=== PATIENT | female | born 1950 | race Caucasian/White ===

== ENCOUNTER 2022-07-29 19:50 | Inpatient (IN) | payer MEDICARE, BC, OTHER, SELFPAY ==
--- NOTE | ~2022-07-29 | XR_ITS ---
EXAMINATION: XR stent/kub surgery DATE: 07/30/2022 07:15 INDICATION: Left internal ureteral stent placement TECHNIQUE: 4 fluoroscopic images of the abdomen and pelvis were obtained during procedure performed joaquin Orozco. Radiologist was not present for the imaging or procedure. The amount of fluoroscopy ti me used during this procedure was 0.2 minutes. 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 There is mild left hydroureteronephrosis. Which extends to the pelvis or a stone is seen in the distalmost lef t ureter on the prior CT likely obscured by the contrast in the current study. Additional excreted co ntrast in the bladder. Subsequent images demonstrate placement of a left internal ureteral stent in e xpected position with loops formed in the bladder and multiple calyx of the left kidney. The left ure teral stone is not identified on the final image and may have been extracted. Correlate with procedur e note. IMPRESSION: 1. Mild left hydroureteronephrosis with placement of a left internal ureteral stent in expected posit ion. Correlate with procedure note as to whether the obstructing distal left ureteral stone seen on p rior CT has been extracted. Reviewed, dictated and finalized at location A. IMPRESSION: 1. Mild left hydroureteronephrosis with placement of a left internal ureteral s tent in expected position. Correlate with procedure note as to whether the obst ructing distal left ureteral stone seen on prior CT has been extracted.
--- NOTE | ~2022-07-29 | CT_ITS ---
EXAMINATION: CT abdomen pelvis w con DATE: 07/30/2022 01:05 INDICATION: Left flank pain, fever and dysuria. Nausea and vomiting. TECHNIQUE: Computed tomography (CT) of the abdomen and pelvis was performed with 100 mL Omnipaque-350 intravenous contrast. Automated exposure control and iterative reconstruction technique were employe d. The dose-length product was 462.07 mGy-cm. COMPARISON: None FINDINGS: Scattered mild discoid atelectasis in the bilateral lower lungs. Heart size is normal. No pericardial or pleural effusion. Moderate-sized sliding-type hiatal hernia. Liver, gallbladder, spleen, pancreas , bilateral adrenal glands and right kidney are normal. 5 mm obstructing stone at the distal left ure ter with mild to moderate left hydroureteronephrosis and mildly delayed left nephrogram. Additional 4 mm stone in a middle calyx of the left kidney. Mildly thickened and enhancing urothelium at the left ureter and collecting system which could be seen with associated ascending urinary tract infection. Mild wall thickening of the bladder. Anteverted uterus and bilateral adnexa are unremarkable. Bowels including the appendix are normal. No free intraperitoneal gas or fluid. No pathologically enlarged o r pelvic lymphadenopathy. Tiny fat-containing umbilical hernia. Moderate spondylosis of the lower tho racic and lower lumbar spine. IMPRESSION: 1. Left nephrolithiasis including an obstructing 5 mm distal left ureteral stone with mild to moderat e left hydronephrosis. Correlate with urinalysis to exclude associated urinary tract infection. 2. Moderate-sized sliding-type hiatal hernia. Reviewed, dictated and finalized at location A. IMPRESSION: 1. Left nephrolithiasis including an obstructing 5 mm distal left ureteral ston e with mild to moderate left hydronephrosis. Correlate with urinalysis to exclu de associated urinary tract infection. 2. Moderate-sized sliding-type hiatal hernia.
--- NOTE | ~2022-07-29 | XR_ITS ---
EXAMINATION: XR abdomen/kub 1V INDICATION: Ureteral stone TECHNIQUE: Supine view of the abdomen is obtained. COMPARISON: 07/30/2022 FINDINGS: A left internal ureteral stent is in expected position. A subtle density of the left pelvis adjacent to the distal aspect of the internal ureteral stent may reflect the stone identified on the comparison examination. There are phleboliths of the pelvis. The bowel gas pattern is normal. Mild o steitis pubis is noted. IMPRESSION: 1. Left internal ureteral stent in expected position with possible stone adjacent to the distal stent . Reviewed, dictated and finalized at location B. IMPRESSION: 1. Left internal ureteral stent in expected position with possible stone adjace nt to the distal stent.
[2022-07-29 20:54] VITALS: BP 113/74; PULSE 104; RESP 14; TEMP 37.3; O2SAT 96
[2022-07-29 23:05] VITALS: BP 108/74; PULSE 88; RESP 22; O2SAT 95
--- NOTE | 2022-07-29 23:10 | PC.NURSE ---
Pt reports left flank pain that started on Saturday and got worse this afternoon. +Nausea, vomiting, and dry heaves. States she was able to sip on white soda over the weekend but couldn't keep it down. She also tried pepto bismol but threw it up as well. 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
[2022-07-29 23:11] LABS: Basophils Absolute Auto 0.1 K/mm3 (0.0-0.1); Basophils Percent Auto 0.4 % (0.2-1.2); Hematocrit 40.3 % (37.0-47.0); Hemoglobin 13.4 g/dL (12.0-15.0); Immature Granulocyte Absolute 0.11 K/mm3 (0.00-0.031); Immature Granulocyte Percent A 0.5 % (0-0.5); Lymphocytes Absolute Auto 0.81 K/mm3 (0.9-3.2); Lymphocytes Percent Auto 3.8 % (18.3-44.2); Mean Corpuscular HGB Conc 33.3 g/dl (32-36); Mean Corpuscular Hemoglobin 30.2 pg (26-34); Mean Corpuscular Volume 90.8 fl (80-100); Mean Platelet Volume 10.3 fl (7.4-10.4); Monocytes Absolute Auto 1.4 K/mm3 (0.1-0.6); Monocytes Percent Auto 6.6 % (2.6-8.5); Neutrophils Absolute Auto 19.2 K/mm3 (1.3-6.7); Neutrophils Percent Auto 88.7 % (45.5-73.1); Platelet Count Result 306 k/mm3 (150-375); Red Blood Count 4.44 M/mm3 (4.2-5.4); Red Cell Distribution Width 13.2 % (11.5-14.5); White Blood Count 21.6 K/mm3 (4.5-10.0)
[2022-07-29 23:22] LABS: Alanine Aminotransferase 17 U/L (6-35); Albumin Level 4.7 g/dL (3.5-5.1); Alkaline Phosphatase 84 U/L (38-126); Anion Gap 9 mmol/L (8-16); Aspartate Amino Transferase 25 U/L (14-36); Bilirubin,Total 0.9 mg/dL (0.2-1.3); Blood Urea Nitrogen 16 mg/dL (7-17); Calcium 9.6 mg/dL (8.4-10.2); Carbon Dioxide 24 mmol/L (22-30); Chloride 103 mmol/L (98-107); Estimated CRCL calculation 43 ml/min; Estimated Glomerular Filt Rate 55; Glucose 150 mg/dL (65-110); Lactic Acid Reflex 1.1 mmol/L (0.7-2.0); Potassium 3.6 mmol/L (3.4-5.0); Sodium 136 mmol/L (137-145)
--- NOTE | 2022-07-29 23:25 | ED.FEMALEGU ---
HPI - Female Genitourinary General Chief complaint: Urogenital-Female Stated complaint: Left flank pain, n/v Time Seen by Provider: 07/29/22 22:39 History of Present Illness HPI Narrative: 72-year-old female here for evaluation of left flank pain over the past 2 days. Patient states the pain is severe in nature, coming in waves. She has never had pain like this in the past. She states that she took her temperature at home and noticed it was 102.3. She took an aspirin which did bring down her fever and improve her flank pain. She has been experiencing dysuria urgency and frequency over the past week to 2 weeks which reportedly cleared up on her own. reports nausea but no vomiting. No diarrhea, constipation. Related Data Allergies Allergy/AdvReac Type Severity Reaction Status Date / Time amoxicillin Allergy Unknown Verified 09/07/10 15:53 Penicillins Allergy Unknown Verified 02/10/18 15:05 Sulfa (Sulfonamide Allergy Unknown Verified 02/10/18 15:05 Antibiotics) sulfur dioxide Allergy Unknown Verified 08/08/10 10:18 Review of Systems Review of Systems: Gen.: Reports fevers Eyes: Denies eye pain or visual change ENT: Denies congestion Respiratory: Denies shortness of breath or cough CV: Denies chest pain or palpitations GI: Reports nausea. Denies abdominal painemesis or diarrhea denies burning, urgency, frequency or hematuria Musculoskeletal: Reports flank pain Neuro: Denies numbness, tingling, weakness or focal weakness Skin: Denies rash Except as documented, all other systems reviewed and negative PMFSH Family History Family History (Updated 08/03/16 @ 23:56 by DOCTOR UNKNOWN) Sibling Patient's sister is in good health Patient's brother is in good health Father Acute myocardial infarction, Onset Age: 69 Patient's father is Mother Patient's mother is Family history of throat cancer Social History Social History Smoking status: Current every day smoker Alcohol intake: never Exam Narrative: APPEARANCE: Well appearing, no pain in distress, well-nourished. Head: Normocephalic and atraumatic. EYES: PERRLA/EOMI, conjunctivae clear NOSE: No nasal drainage EARS: External ear normal in appearance THROAT: Oropharynx is clear. Mucous membranes are moist. NECK: Supple. No adenopathy, no masses. RESPIRATORY: Airway patent, respirations nonlabored. Clear to auscultation bilaterally, no rales, rhonchi, wheezing. CARDIOVASCULAR: Regular rate and rhythm without murmurs, rubs, or gallops. ABDOMINAL: Normoactive bowel sounds. Soft, nontender, nondistended. No rebound tenderness or guarding. MUSCULOSKELETAL: Left CVA tenderness. Extremities are warm and well-perfused. Moves all extremities well. No edema. NEURO: Normal speech. No focal neurologic deficits. SKIN: Skin is warm and dry. No rashes. PSYCHIATRIC: Normal affect/mood. Course Vital Signs Vital signs: Vital Signs Temperature 99.1 F 07/29/22 20:54 Pulse Rate 104 H 07/29/22 20:54 Respiratory Rate 14 07/29/22 20:54 Blood Pressure 113/74 07/29/22 20:54 Pulse Oximetry 96 07/29/22 20:54 Oxygen Delivery Room Air 07/29/22 20:54 Temperature 99.1 F 07/29/22 20:54 Pulse Rate 70 07/30/22 01:31 Respiratory Rate 18 07/30/22 01:31 Blood Pressure 110/72 07/30/22 01:31 Pulse Oximetry 96 07/30/22 01:31 Oxygen Delivery Room Air 07/29/22 20:54 MDM - Female Genitourinary MDM Narrative Medical decision making narrative: 72-year-old female here for evaluation of left flank pain, dysuria and fevers at home for the past day. She is uncomfortable appearing but nontoxic in appearance. Initial pulse is 104, temperature is 99.1 in triage, patient took aspirin prior to arrival. She has a white count of 21.6. Her urine appears very infected; is nitrate positive, over 100 white blood cells, 3+ leuks and 4+ bacteria are seen. CT scan reveals evidence of a distal ureteral stone in the
[2022-07-29 23:30] VITALS: BP 106/81; PULSE 87; RESP 16; O2SAT 97
[2022-07-29] MEDS: SODIUM CHLORIDE 0.9% IV 1,000 ML 999 ML IV CONT (23:32)
[2022-07-29] MEDS: ONDANSETRON INJ 4 MG/2 ML VIAL IV PUSH (23:33)
[2022-07-29 23:42] LABS: Appearance Urine Turbid (Clear); Bacteria Urine 4+ /hpf; Bilirubin Urine Negative (Negative); Blood Urine 3+ (Negative); Color Urine Dark Yellow (Yellow); Glucose Urine UA Negative (Negative); Ketones Urine 2+ mg/dL (Negative); Leukocyte Esterase Ur 3+ LEU/UL (Negative); Need Manual Microscopic Reviewed; Nitrate Urine Positive (Negative); Protein Urine 2+ mg/dL (Negative); Specific Grav Ur 1.017 (1.001-1.035); Squamous Epithelial Cell Urine None seen /hpf (Few); Urobilinogen Urine 0.2 mg/dL (<2.0); WBC Urine >100 /hpf; pH Urine 5.5 (5.0-9.0)
[2022-07-29 23:45] LABS: Add Urine Microscopic? YES
[2022-07-30] VITALS (14 sets, daily range): BP systolic 98–120; BP diastolic 59–82; PULSE 55–87; RESP 14–20; TEMP 36.2–36.9; O2SAT 96–100; BMI 24.3
[2022-07-30] MEDS: SODIUM CHLORIDE 0.9% IV 1,000 ML 999 ML IV CONT (01:58)
[2022-07-30] MEDS: ONDANSETRON INJ 4 MG/2 ML VIAL IV PUSH (03:01)
--- NOTE | 2022-07-30 03:46 | ADMGEN ---
This patient, Ella Olea, was admitted to Medical Room 348-01. Patient/family oriented to hospital policies and general routines including ID bracelet, bed and alarms, visiting hours, pain management, procedures, bathroom and other care routines, personal items, smoking policy, room service/diet, and visiting hours. Information on how to activate the Rapid Response Team has been discussed. Patient/Family are encouraged to report perceived risks to care and to ask questions if they do not understand what they are told or what they should do.
[2022-07-30] MEDS: SODIUM CHLORIDE 0.9% IV 1,000 ML 150 ML IV CONT (04:18)
--- NOTE | 2022-07-30 06:08 | WPDANESEPPF ---
Anes - Initial Pre Proc Eval Procedure: Operation Date: 07/30/22 06:30 Proposed Procedures p Cysto, RPG, Stone Ext, Stent Placement(Left) - Rupesh Orozco MD Date/Time: 07/30/22 06:08 Surgeon: Heidy Palmer DO Pre Op Diagnosis: L ureteral stone Pre Op Diagnosis: urosepsis,kidney stone Patient Data Age: 72 Gender: F Height: 1.68 m Weight: 68.3 kg Last Vital Signs Temp 36.7 C 07/30/22 05:42 Pulse 70 07/30/22 05:42 Resp 16 07/30/22 05:42 BP 115/80 07/30/22 05:42 Pulse Ox 97 07/30/22 05:42 O2 Del Method Room Air 07/30/22 04:28 Allergies Allergy/AdvReac Type Severity Reaction Status Date / Time Penicillins Allergy Unknown Rash Verified 07/30/22 03:58 Sulfa (Sulfonamide Allergy Unknown Rash Verified 07/30/22 03:58 Antibiotics) sulfur dioxide Allergy Unknown Rash Verified 07/30/22 03:58 amoxicillin AdvReac Unknown Rash Verified 07/30/22 03:58 Home Medications Medication Instructions Recorded Confirmed Type aspirin 81 mg capsule 81 mg PO PRN PRN Fever Or Pain 07/30/22 07/30/22 History esomeprazole magnesium 20 mg 20 mg PO PRN PRN Acid Reflux 07/30/22 07/30/22 History capsule,delayed release (Nexium) Laboratory Tests 07/29/22 07/29/22 07/29/22 23:01 23:01 23:01 WBC 21.6 K/mm3 H K/mm3 (4.5-10.0) RBC 4.44 M/mm3 M/mm3 (4.2-5.4) Hgb 13.4 g/dL g/dL (12.0-15.0) Hct 40.3 % % (37.0-47.0) MCV 90.8 fl fl (80-100) MCH 30.2 pg pg (26-34) MCHC 33.3 g/dl g/dl (32-36) RDW 13.2 % % (11.5-14.5) Plt Count 306 k/mm3 k/mm3 (150-375) MPV 10.3 fl fl (7.4-10.4) Immature Gran % (Auto) 0.5 % % (0-0.5) Neut % (Auto) 88.7 % H % (45.5-73.1) Lymph % (Auto) 3.8 % L % (18.3-44.2) [place] % (Auto) 6.6 % % (2.6-8.5) Eos % (Auto) 0.0 % % (0-4.4) Baso % (Auto) 0.4 % % (0.2-1.2) Lymph # (Auto) 0.81 K/mm3 L K/mm3 (0.9-3.2) [place] # (Auto) 1.4 K/mm3 H K/mm3 (0.1-0.6) Eos # (Auto) 0.0 K/mm3 K/mm3 (0-0.3) Baso # (Auto) 0.1 K/mm3 K/mm3 (0.0-0.1) Abs Immat Gran (auto) 0.11 K/mm3 H K/mm3 (0.00-0.031) Absolute Neuts (auto) 19.2 K/mm3 H K/mm3 (1.3-6.7) Absolute Nucleated RBC 0.0 K/mm3 K/mm3 (0.0-0.012) Nucleated RBC % 0.0 % % (0.0-0.2) Sodium 136 mmol/L L mmol/L (137-145) Potassium 3.6 mmol/L mmol/L (3.4-5.0) Chloride 103 mmol/L mmol/L (98-107) Carbon Dioxide 24 mmol/L mmol/L (22-30) Anion Gap 9 mmol/L mmol/L (8-16) BUN 16 mg/dL mg/dL (7-17) Creatinine 1.00 mg/dL mg/dL (0.7-1.0) Estim Creat Clear Calc 43 ml/min ml/min Estimated GFR 55 L (59 - ) Glucose 150 mg/dL H mg/dL (65-110) Lactic Acid Calcium 9.6 mg/dL mg/dL (8.4-10.2) Total Bilirubin 0.9 mg/dL mg/dL (0.2-1.3) AST 25 U/L U/L (14-36) ALT 17 U/L U/L (6-35) Alkaline Phosphatase 84 U/L U/L (38-126) Total Protein 8.0 g/dL g/dL (6.3-8.2) Albumin 4.7 g/dL g/dL (3.5-5.1) Urine Color Dark yellow (Yellow) Urine Appearance Turbid H (Clear) Urine pH 5.5 (5.0-9.0) Ur Specific [place] 1.017 (1.001-1.035) Urine Protein 2+ mg/dL H mg/dL (Negative) Urine Glucose (UA) Negative mg/dL mg/dL (Negative) Urine Ketones 2+ mg/dL H mg/dL (Negative) Ur Blood (Man) 3+ H (Negative) Urine Nitrate Positive H (Negative) Urine Bilirubin Negative (Negative) Urine Urobilinogen 0.2 mg/dL mg/dL (<2.0) Add Ur Microanalysis Reviewed Leukocyte Esterase Rfl 3+ ERIN/UL H ERIN/UL (Negative) Urine RBC 3-5 /hpf H /hpf (0-2) Urine W
--- NOTE | 2022-07-30 06:33 | PC.NURSE ---
pt to OR via wheelchair. consent and chart with patient. all personal belongings left at bedside.
--- NOTE | 2022-07-30 06:37 | WPDURCON ---
Assessment and Plan Assessment and plan (1) Kidney stone on left side: Code(s): N20.0 - Calculus of kidney Status: Acute (2) Urinary tract infection in elderly patient: Code(s): N39.0 - Urinary tract infection, site not specified Status: Acute Plan Will proceed with cystoscopy and left ureteral stent placement. She understands risks of bleeding, infection, damage to the urinary tract, inability to place stent. She understands I will not be removing the stone at this time due to the high likelihood of upper tract infection. She will need to be in-house until a urine culture returns with sensitivities. She can then be discharged home on 10-14 days of oral antibiotics. We will arrange definitive stone management as an outpatient. Urology Consult Note HPI Date Seen: 07/30/22 Requesting Physician: Heidy Palmer DO Primary Care Provider: PHYSICIAN NOT ON STAFF Consult Narrative Narrative: Ella Olea is a 72 year old female With no prior history of nephrolithiasis. She has been having symptoms of urinary tract infection for the last week or 2. She has noted urgency and frequency as well as dysuria. On Saturday she began to have left-sided flank pain. This progressed to fevers on Saturday at a max of 102 at home. This prompted her visit the emergency room. CT scan was done which shows a stone in the mid to distal ureter. There was hydronephrosis proximal the stone with urothelial enhancement consistent with upper tract infection. She took aspirin and Tylenol before coming to the ER so her fever is down to 99. she continues to note dysuria and left flank pain. She has an elevated white count of 21. We will proceed with left stent placement on an emergent basis Review of Systems Review of Systems: All systems reviewed & are unremarkable except as noted in HPI and below [facility] Family History Family History Sibling Patient's sister is in good health Patient's brother is in good health Father Acute myocardial infarction, Onset Age: 69 Patient's father is Mother Patient's mother is Family history of throat cancer Social History Social History Smoking status: Former smoker Alcohol intake: former Substance use: never Lack of Transportation: No Lack of Food: Never True Current Housing: I Have Housing Concerned About Future Housing: No Difficulty Paying Gas/Electric Bills: No Difficulty Paying for Meds: No Currently Unemployed: No Education: Decline to Answer Difficulty w/ Childcare or Family Care: No Spiritual care concerns: No Meds Home Medications and Allergies Home Medications Medication Instructions Recorded Confirmed Type aspirin 81 mg capsule 81 mg PO PRN PRN Fever Or Pain 07/30/22 07/30/22 History esomeprazole magnesium 20 mg 20 mg PO PRN PRN Acid Reflux 07/30/22 07/30/22 History capsule,delayed release (Nexium) Allergies Allergy/AdvReac Type Severity Reaction Status Date / Time Penicillins Allergy Unknown Rash Verified 07/30/22 03:58 Sulfa (Sulfonamide Allergy Unknown Rash Verified 07/30/22 03:58 Antibiotics) sulfur dioxide Allergy Unknown Rash Verified 07/30/22 03:58 amoxicillin AdvReac Unknown Rash Verified 07/30/22 03:58 Vital Signs Vital Signs - 24 hr 07/29/22 20:54 07/29/22 23:05 07/29/22 23:30 Temperature 99.1 F Pulse Rate 104 H 88 87 Respiratory Rate 14 22 H 16 Blood Pressure 113/74 108/74 106/81 Pulse Oximetry 96 95 97 Oxygen Delivery Room Air 07/30/22 00:31 07/30/22 01:07 07/30/22 01:31 Temperature Pulse Rate 76 73 70 Respiratory Rate 18 18 18 Blood Pressure 120/73 117/82 110/72 Pulse Oximetry 100 96 96 Oxygen Delivery 07/30/22 02:01 07/30/22 03:01 07/30/22 03:55 Temperature 98.0 F Pulse Rate 66 61 69 Respiratory Rate 20 18 18 Blood
--- NOTE | 2022-07-30 06:48 | WPDHPUPDATE1 ---
History and Physical Update Update Date/Time: 07/30/22 06:48 History and Physical has been reviewed, including an updated exam of the patient. There are NO changes in the patient's condition. Risks, benefits, and alternatives have been discussed and questions answered. Patient agrees to proceed with procedure.
--- NOTE | 2022-07-30 06:48 | WPDANESEPPF ---
Anes - Initial Pre Proc Eval Procedure: Operation Date: 07/30/22 06:30 Proposed Procedures p Cysto, RPG, Stone Ext, Stent Placement(Left) - Rupesh Orozco MD Date/Time: 07/30/22 06:48 Surgeon: Heidy Palmer DO Pre Op Diagnosis: urosepsis,kidney stone Patient Data Age: 72 Gender: F Height: 1.68 m Weight: 68.3 kg Last Vital Signs Temp 36.7 C 07/30/22 05:42 Pulse 70 07/30/22 05:42 Resp 16 07/30/22 05:42 BP 115/80 07/30/22 05:42 Pulse Ox 97 07/30/22 05:42 O2 Del Method Room Air 07/30/22 04:28 Allergies Allergy/AdvReac Type Severity Reaction Status Date / Time Penicillins Allergy Unknown Rash Verified 07/30/22 03:58 Sulfa (Sulfonamide Allergy Unknown Rash Verified 07/30/22 03:58 Antibiotics) sulfur dioxide Allergy Unknown Rash Verified 07/30/22 03:58 amoxicillin AdvReac Unknown Rash Verified 07/30/22 03:58 Home Medications Medication Instructions Recorded Confirmed Type aspirin 81 mg capsule 81 mg PO PRN PRN Fever Or Pain 07/30/22 07/30/22 History esomeprazole magnesium 20 mg 20 mg PO PRN PRN Acid Reflux 07/30/22 07/30/22 History capsule,delayed release (Nexium) Laboratory Tests 07/29/22 07/29/22 07/29/22 23:01 23:01 23:01 WBC 21.6 K/mm3 H K/mm3 (4.5-10.0) RBC 4.44 M/mm3 M/mm3 (4.2-5.4) Hgb 13.4 g/dL g/dL (12.0-15.0) Hct 40.3 % % (37.0-47.0) MCV 90.8 fl fl (80-100) MCH 30.2 pg pg (26-34) MCHC 33.3 g/dl g/dl (32-36) RDW 13.2 % % (11.5-14.5) Plt Count 306 k/mm3 k/mm3 (150-375) MPV 10.3 fl fl (7.4-10.4) Immature Gran % (Auto) 0.5 % % (0-0.5) Neut % (Auto) 88.7 % H % (45.5-73.1) Lymph % (Auto) 3.8 % L % (18.3-44.2) [facility] % (Auto) 6.6 % % (2.6-8.5) Eos % (Auto) 0.0 % % (0-4.4) Baso % (Auto) 0.4 % % (0.2-1.2) Lymph # (Auto) 0.81 K/mm3 L K/mm3 (0.9-3.2) [facility] # (Auto) 1.4 K/mm3 H K/mm3 (0.1-0.6) Eos # (Auto) 0.0 K/mm3 K/mm3 (0-0.3) Baso # (Auto) 0.1 K/mm3 K/mm3 (0.0-0.1) Abs Immat Gran (auto) 0.11 K/mm3 H K/mm3 (0.00-0.031) Absolute Neuts (auto) 19.2 K/mm3 H K/mm3 (1.3-6.7) Absolute Nucleated RBC 0.0 K/mm3 K/mm3 (0.0-0.012) Nucleated RBC % 0.0 % % (0.0-0.2) Sodium 136 mmol/L L mmol/L (137-145) Potassium 3.6 mmol/L mmol/L (3.4-5.0) Chloride 103 mmol/L mmol/L (98-107) Carbon Dioxide 24 mmol/L mmol/L (22-30) Anion Gap 9 mmol/L mmol/L (8-16) BUN 16 mg/dL mg/dL (7-17) Creatinine 1.00 mg/dL mg/dL (0.7-1.0) Estim Creat Clear Calc 43 ml/min ml/min Estimated GFR 55 L (59 - ) Glucose 150 mg/dL H mg/dL (65-110) Lactic Acid Calcium 9.6 mg/dL mg/dL (8.4-10.2) Total Bilirubin 0.9 mg/dL mg/dL (0.2-1.3) AST 25 U/L U/L (14-36) ALT 17 U/L U/L (6-35) Alkaline Phosphatase 84 U/L U/L (38-126) Total Protein 8.0 g/dL g/dL (6.3-8.2) Albumin 4.7 g/dL g/dL (3.5-5.1) Urine Color Dark yellow (Yellow) Urine Appearance Turbid H (Clear) Urine pH 5.5 (5.0-9.0) Ur Specific [place] 1.017 (1.001-1.035) Urine Protein 2+ mg/dL H mg/dL (Negative) Urine Glucose (UA) Negative mg/dL mg/dL (Negative) Urine Ketones 2+ mg/dL H mg/dL (Negative) Ur Blood (Man) 3+ H (Negative) Urine Nitrate Positive H (Negative) Urine Bilirubin Negative (Negative) Urine Urobilinogen 0.2 mg/dL mg/dL (<2.0) Add Ur Microanalysis Reviewed Leukocyte Esterase Rfl 3+ ERIN/UL H ERIN/UL (Negative) Urine RBC 3-5 /hpf H /hpf (0-2) Urine WBC >100 /hpf H /hpf Ur Squ
--- NOTE | 2022-07-30 07:08 | P.OP_ITS ---
Procedure Note - Detailed Date of Procedure 07/30/22 Pre-op Diagnosis urosepsis, ureteral stone Post-op Diagnosis Same Procedure Performed cystoscopy, left ureteral stent placement Surgeon Rupesh Orozco MD Anesthesia General Indications the stone with a left distal ureteral stone. She has a white count of 21 and fevers as well as an abnormal urinalysis. Replacing the left stent. She understands we will not be removing the stone. She understands risks of bleeding, infection, inability to place the stent, damage to the urinary tract. She agrees to proceed Findings left hydronephrosis. Left ureteral stent placed Description of Procedure she was correctly identified. Informed consent obtained. She from the operating room. She was given general anesthesia. She was placed in the dorsal thigh position. She was prepped and draped sterile fashion. Time-out performed. Cystoscopy revealed cloudy urine and a reddened bladder consistent with infection. [employer] radiograph revealed left hydronephrosis proximal to the stone. I placed a guidewire in the left kidney. I then placed a 4.8 variable length stent. Proximal coil curled in the kidney. Distal coil curled in the bladder. Her bladder was drained. She was awakened transferred to PACU in stable condition. Implants Left ureteral stent Estimated Blood Loss 0 Urine Output 400 Pathology None sent Complications No immediate complications Condition Stable Disposition PACU
[2022-07-30] MEDS: LACTATED RINGERS 1,000 ML 30 ML IV CONT (07:10)
[2022-07-30] MEDS: LIDOCAINE HCL 2% GEL UROJET 10 ML PKG MUCOUS MEM (07:14)
[2022-07-30] MEDS: fentaNYL CITRATE INJ (*CRX) 100 MCG/2 ML VIAL 25 MCG IV PUSH ×2 (07:39→07:48)
[2022-07-30 10:31] LABS: Hematocrit 33.4 % (37.0-47.0); Hemoglobin 10.7 g/dL (12.0-15.0); Mean Corpuscular Hemoglobin 29.5 pg (26-34); Mean Platelet Volume 10.4 fl (7.4-10.4); Platelet Count Result 258 k/mm3 (150-375); Red Blood Count 3.63 M/mm3 (4.2-5.4); Red Cell Distribution Width 13.2 % (11.5-14.5); White Blood Count 15.3 K/mm3 (4.5-10.0)
[2022-07-30 10:41] LABS: Anion Gap 5 mmol/L (8-16); Blood Urea Nitrogen 13 mg/dL (7-17); Calcium 8.5 mg/dL (8.4-10.2); Carbon Dioxide 25 mmol/L (22-30); Chloride 109 mmol/L (98-107); Estimated CRCL calculation 53 ml/min; Estimated Glomerular Filt Rate > 60; Glucose 104 mg/dL (65-110); Potassium 3.8 mmol/L (3.4-5.0); Sodium 139 mmol/L (137-145)
--- NOTE | 2022-07-30 14:30 | PM.IMHP ---
H&P: HPI History of Present Illness Date/Time: 07/30/22 14:30 Chief Complaint: Flank pain, dysuria Narrative: This is a 72-year-old female with past medical history of osteoporosis although she is not taking any medications for this. patient presents to the ED on 07/29/2022 with chief complaint of flank pain and dysuria. Patient stated that several weeks ago she had begun having discomfort with urination although she did not do much about her symptoms. Patient stated that the dysuria eventually went away and she had been doing a probiotics and water. Patient then developed flank pain and was unsure what was causing this. Three days ago she developed nausea associated with the pain and she stated that she was still not sure what was causing her symptoms although she wanted to manage it at home. Associated symptoms included lack of appetite and strong odor of her urine. Patient was very scatterbrained and difficult to follow-up with her story. In the ER patient was found to white blood cell count of 21.6. UA with 3+ blood, positive nitrates, 3+ leukocyte esterase, 3-5 rbc's, greater than 100 wbc's and 4+ bacteria. Urine sent for culture and pending results. Patient was started IV ceftriaxone 1 g Q [address] abdomen pelvis revealed left nephrolithiasis including obstructing 5 mm distal left ureteral stone with [id number] left hydronephrosis. Urology consulted. Patient underwent cystoscopy and left ureteral stent placement. Urology recommended treatment of urinary tract infection before removal of stone. Patient will follow urology as outpatient. [facility] Past Medical History Medical History (Updated 07/30/22 @ 14:40 by Katey Higuera PA-C) Osteoporosis Surgical History Surgical History (Updated 07/30/22 @ 14:41 by Katey Higuera PA-C) History of tubal ligation Family History Family History Sibling Patient's sister is in good health Patient's brother is in good health Father Acute myocardial infarction, Onset Age: 69 Patient's father is Mother Patient's mother is Family history of throat cancer Social History Social History (Updated 07/30/22 @ 14:43 by Katey Higuera PA-C) Social History: patient is a former smoker that stopped smoking in 1981 and states that she smoked and unknown amount a day. Patient does not consume alcohol or her taken drug use. Patient is a in both of her children have passed as well. Smoking status: Former smoker Alcohol intake: former Substance use: never Lack of Transportation: No Lack of Food: Never True Current Housing: I Have Housing Concerned About Future Housing: No Difficulty Paying Gas/Electric Bills: No Difficulty Paying for Meds: No Currently Unemployed: No Education: Decline to Answer Difficulty w/ Childcare or Family Care: No Spiritual care concerns: No Meds Home Medications and Allergies Home Medications Medication Instructions Recorded Confirmed Type aspirin 81 mg capsule 81 mg PO PRN PRN Fever Or Pain 07/30/22 07/30/22 History esomeprazole magnesium 20 mg 20 mg PO PRN PRN Acid Reflux 07/30/22 07/30/22 History capsule,delayed release (Nexium) Allergies Allergy/AdvReac Type Severity Reaction Status Date / Time Penicillins Allergy Unknown Rash Verified 07/30/22 03:58 Sulfa (Sulfonamide Allergy Unknown Rash Verified 07/30/22 03:58 Antibiotics) sulfur dioxide Allergy Unknown Rash Verified 07/30/22 03:58 amoxicillin AdvReac Unknown Rash Verified 07/30/22 03:58 Vital Signs Vital Signs - 24 hr 07/29/22 20:54 07/29/22 23:05 07/29/22 23:30 Temperature 99.1 F Pulse Rate 104 H 88 87 Respiratory Rate 14 22 H 16 Blood Pressure 113/74 108/74 106/81 Pulse Oximetry 96 95 97 Oxygen Delivery Room Air Oxygen Flow Rate 07/30/22 00:31 07/30/22 01:07 07/30/22 01:31 Temperature Pulse Rate 76
[2022-07-31 06:00] VITALS: BP 122/76; PULSE 70; RESP 18; TEMP 36.9; O2SAT 98
[2022-07-31 07:12] LABS: Basophils Absolute Auto 0.1 K/mm3 (0.0-0.1); Basophils Percent Auto 0.6 % (0.2-1.2); Eosinophils Absolute Auto 0.1 K/mm3 (0-0.3); Eosinophils Percent Auto 1.2 % (0-4.4); Hematocrit 34.3 % (37.0-47.0); Immature Granulocyte Absolute 0.03 K/mm3 (0.00-0.031); Immature Granulocyte Percent A 0.3 % (0-0.5); Lymphocytes Absolute Auto 2.19 K/mm3 (0.9-3.2); Lymphocytes Percent Auto 19.9 % (18.3-44.2); Mean Corpuscular HGB Conc 32.1 g/dl (32-36); Mean Corpuscular Hemoglobin 29.8 pg (26-34); Mean Platelet Volume 10.7 fl (7.4-10.4); Monocytes Absolute Auto 0.9 K/mm3 (0.1-0.6); Monocytes Percent Auto 8.1 % (2.6-8.5); Neutrophils Absolute Auto 7.7 K/mm3 (1.3-6.7); Neutrophils Percent Auto 69.9 % (45.5-73.1); Platelet Count Result 274 k/mm3 (150-375); Red Blood Count 3.69 M/mm3 (4.2-5.4); Red Cell Distribution Width 13.2 % (11.5-14.5)
[2022-07-31 07:29] LABS: Alanine Aminotransferase 15 U/L (6-35); Albumin Level 3.6 g/dL (3.5-5.1); Alkaline Phosphatase 69 U/L (38-126); Anion Gap 9 mmol/L (8-16); Aspartate Amino Transferase 21 U/L (14-36); Bilirubin,Total 0.6 mg/dL (0.2-1.3); Blood Urea Nitrogen 7 mg/dL (7-17); Calcium 8.6 mg/dL (8.4-10.2); Carbon Dioxide 23 mmol/L (22-30); Chloride 105 mmol/L (98-107); Estimated CRCL calculation 53 ml/min; Estimated Glomerular Filt Rate > 60; Glucose 97 mg/dL (65-110); Potassium 3.5 mmol/L (3.4-5.0); Sodium 137 mmol/L (137-145)
[2022-07-31 08:30] VITALS: O2SAT 94
--- NOTE | 2022-07-31 13:20 | P.PNAN_ITS ---
Anes - Prog Note Post-Op Date/Time: 07/31/22 13:20 Vital Signs: Last Vital Signs Temp 36.9 C 07/31/22 06:00 Pulse 70 07/31/22 06:00 Resp 18 07/31/22 06:00 BP 122/76 07/31/22 06:00 Pulse Ox 94 07/31/22 08:30 O2 Del Method Room Air 07/31/22 08:30 O2 Flow Rate 6 07/30/22 07:10 Pain Score (VAS): 0 I/O: Intake & Output 07/30/22 07/31/22 07/31/22 23:59 07:59 15:59 Intake Total 740 50 240 Output Total 2100 2400 450 Balance -6190 -6950 -210 Laboratory Tests 07/31/22 06:42 07/31/22 06:42 07/31/22 07/31/22 06:42 06:42 WBC 11.0 H RBC 3.69 L Hgb 11.0 L Hct 34.3 L MCV 93.0 MCH 29.8 MCHC 32.1 RDW 13.2 Plt Count 274 MPV 10.7 H Immature Gran % (Auto) 0.3 Neut % (Auto) 69.9 Lymph % (Auto) 19.9 [place] % (Auto) 8.1 Eos % (Auto) 1.2 Baso % (Auto) 0.6 Lymph # (Auto) 2.19 [place] # (Auto) 0.9 H Eos # (Auto) 0.1 Baso # (Auto) 0.1 Abs Immat Gran (auto) 0.03 Absolute Neuts (auto) 7.7 H Absolute Nucleated RBC 0.0 Nucleated RBC % 0.0 Sodium 137 Potassium 3.5 Chloride 105 Carbon Dioxide 23 Anion Gap 9 BUN 7 D Creatinine 0.80 Estim Creat Clear Calc 53 Estimated GFR > 60 Glucose 97 Calcium 8.6 Total Bilirubin 0.6 AST 21 ALT 15 Alkaline Phosphatase 69 Total Protein 7.0 Albumin 3.6 Microbiology 07/29/22 23:01 Urine Clean Catch Urine Culture - Preliminary Escherichia Coli 07/30/22 00:10 Blood Blood Culture - Preliminary 07/30/22 00:07 Blood Blood Culture - Preliminary Patient Feedback: Patient satisfied with anesthetic care.
[2022-07-31 14:00] VITALS: BP 115/72; PULSE 72; RESP 20; TEMP 36.4; O2SAT 95
--- NOTE | 2022-07-31 15:47 | PM.IMPN ---
Progress Note: A&P Assessment and Plan (1) Urinary tract infection in elderly patient: Code(s): N39.0 - Urinary tract infection, site not specified Status: Acute Assessment and Plan: Patient presented the ED with dysuria and flank pain. UA with 3+ blood, positive nitrates, 3+ leukocyte esterase, 3-5 rbc's, greater than 100 wbc's and 4+ bacteria. IV ceftriaxone 1 g Q 24 hours Urine culture pending, adjust therapy to sensitivities Zofran p.r.n. for nausea vomiting. White blood cell count trending down, monitor BMP. (2) Kidney stone on left side: Code(s): N20.0 - Calculus of kidney Status: Acute Assessment and Plan: Patient presents to ED with flank pain.CT abdomen pelvis revealed left nephrolithiasis including obstructing 5 mm distal left ureteral stone with [id number] left hydronephrosis. Urology consulted. Patient underwent cystoscopy and left ureteral stent placement. Urology recommended treatment of urinary tract infection before removal of stone. Patient will follow urology as outpatient. Time Spent With Patient Time with patient: Greater than 35 minutes Subjective Date/time seen: 07/31/22 15:47 Interval history: Patient doing well today. . Patient's urine culture came back positive for E coli. Sensitivities pending will tailor antibiotic therapy to sensitivities. Patient is still having some urinary burning right when she finishes urinating. She is still urinating blood post ureteral stent. Back pain has resolved. Denies fevers and chills. Discussed her UTI with her for greater than 20 minutes. Review of Systems Review of Systems: All systems reviewed & are unremarkable except as noted in HPI and below Exam Narrative: GENERAL: Comfortable, no acute distress HENMT: moist mucous membranes EYES: EOM intact b/l NECK: no lymphadenopathy RESPIRATORY: clear to auscultation CARDIO: RRR GI: soft, nontender, bowel sounds present , no CVA tenderness SKIN: no rashes EXTREMITIES: no edema, redness or tenderness Objective Data Vital Signs Vital Signs: Vital Signs - 24 hr 07/30/22 20:00 07/30/22 21:52 07/31/22 06:00 Temperature 98.4 F 98.4 F Pulse Rate 55 L 70 Respiratory Rate 18 18 Blood Pressure 115/74 122/76 Pulse Oximetry 98 98 Oxygen Delivery Room Air 07/31/22 08:30 07/31/22 08:00 07/31/22 14:00 Temperature 97.6 F Pulse Rate 72 Respiratory Rate 20 Blood Pressure 115/72 Pulse Oximetry 94 95 Oxygen Delivery Room Air Room Air Intake/Output Intake/Output: Intake & Output 07/28/22 07/29/22 07/30/22 07/31/22 23:59 23:59 23:59 23:59 Intake Total 3670 410 Output Total 2900 2850 Balance 770 -2440 Meds/Results Medications: Active Medications Generic Name Dose Route Start Last Admin Trade Name Freq PRN Reason Stop Dose Admin Hydrocodone Bitart/Acetaminophen 1 tab 07/30/22 08:02 Hydrocodone/Acetaminophen (*Crx) 5-325 Mg Tablet PO Q6H PRN Pain Rated 4-6 Aspirin 81 mg 07/30/22 08:05 Aspirin 81 Mg Chewable Tablet PO Q4H PRN Mild Fever Or Pain Ceftriaxone Sodium 1 gm in 50 mls @ 100 mls/hr 07/31/22 00:00 07/31/22 00:57 Rocephin 1 Gm/Ns 50 Ml IVPB Infused Q24H GENEVIEVE Infusion Morphine Sulfate 4 mg 07/30/22 02:36 Morphine Sulfate (*Crx) 4 Mg/Ml Inj IV PUSH Q2H PRN Pain Rated 7-10 Ondansetron HCl 4 mg 07/30/22 02:36 07/30/22 03:01 Ondansetron Inj 4 Mg/2 Ml Vial IV PUSH 4 mg Q4H PRN Administration Nausea Oxybutynin Chloride 5 mg 07/30/22 08:02 Oxybutynin Chloride 5 Mg Tablet PO TID PRN Abdominal Cramping Pantoprazole Sodium 40 mg 07/30/22 08:06 Pantoprazole 40 Mg Tablet PO DAILY PRN Acid Reflux Radiology Results: ITS Impressions Ureter Stent X-Ray 07/30/22 07:34 IMPRESSION: 1. Mild left hydroureteronephrosis with placement of a left internal ureteral stent in expecte
[2022-07-31 20:41] VITALS: BP 118/70; PULSE 70; RESP 16; TEMP 36.8; O2SAT 96
[2022-07-31] MEDS: DOCUSATE SODIUM 100 MG CAPSULE PO (20:47)
[2022-08-01 05:28] VITALS: BP 149/86; PULSE 71; RESP 18; TEMP 36.3; O2SAT 96
[2022-08-01 06:54] LABS: Basophils Absolute Auto 0.1 K/mm3 (0.0-0.1); Basophils Percent Auto 0.7 % (0.2-1.2); Eosinophils Absolute Auto 0.3 K/mm3 (0-0.3); Eosinophils Percent Auto 3.4 % (0-4.4); Hematocrit 36.1 % (37.0-47.0); Hemoglobin 11.4 g/dL (12.0-15.0); Immature Granulocyte Absolute 0.03 K/mm3 (0.00-0.031); Immature Granulocyte Percent A 0.4 % (0-0.5); Lymphocytes Percent Auto 24.7 % (18.3-44.2); Mean Corpuscular HGB Conc 31.6 g/dl (32-36); Mean Corpuscular Hemoglobin 29.2 pg (26-34); Mean Corpuscular Volume 92.6 fl (80-100); Mean Platelet Volume 10.9 fl (7.4-10.4); Monocytes Absolute Auto 0.8 K/mm3 (0.1-0.6); Monocytes Percent Auto 9.2 % (2.6-8.5); Neutrophils Absolute Auto 5.2 K/mm3 (1.3-6.7); Neutrophils Percent Auto 61.6 % (45.5-73.1); Platelet Count Result 303 k/mm3 (150-375); White Blood Count 8.5 K/mm3 (4.5-10.0)
[2022-08-01 07:08] LABS: Alanine Aminotransferase 15 U/L (6-35); Alkaline Phosphatase 66 U/L (38-126); Anion Gap 8 mmol/L (8-16); Aspartate Amino Transferase 23 U/L (14-36); Bilirubin,Total 0.7 mg/dL (0.2-1.3); Blood Urea Nitrogen 7 mg/dL (7-17); Calcium 8.8 mg/dL (8.4-10.2); Carbon Dioxide 26 mmol/L (22-30); Chloride 103 mmol/L (98-107); Estimated CRCL calculation 60 ml/min; Estimated Glomerular Filt Rate > 60; Glucose 97 mg/dL (65-110); Potassium 3.7 mmol/L (3.4-5.0); Sodium 137 mmol/L (137-145)
[2022-08-01] MEDS: DOCUSATE SODIUM 100 MG CAPSULE PO (08:57)
--- NOTE | 2022-08-01 10:05 | PM.DS ---
DS: Admitting Diagnosis Discharge Date 08/01/22 Admitting Diagnosis UTI DS: Discharge Diagnosis Discharge Diagnosis (1) Urinary tract infection in elderly patient: Code(s): N39.0 - Urinary tract infection, site not specified Status: Acute Assessment and Plan: Patient presented the ED with dysuria and flank pain. UA with 3+ blood, positive nitrates, 3+ leukocyte esterase, 3-5 rbc's, greater than 100 wbc's and 4+ bacteria. IV ceftriaxone 1 g Q 24 hours transitioned to cefdinir bid for 10 days of total antibiotics treatment. Urine culture positive for E. Coli sensitive to ceftriaxone. Zofran p.r.n. for nausea vomiting. White blood cell count now within normal range. (2) Kidney stone on left side: Code(s): N20.0 - Calculus of kidney Status: Acute Assessment and Plan: Patient presents to ED with flank pain.CT abdomen pelvis revealed left nephrolithiasis including obstructing 5 mm distal left ureteral stone with [id number] left hydronephrosis. Urology consulted. Patient underwent cystoscopy and left ureteral stent placement. Urology recommended treatment of urinary tract infection before removal of stone. Patient will follow urology as outpatient. DS: Summary Hospital Course Reason for hospitalization: UTI Hospital Course: This is a 72-year-old female with? past medical history of osteoporosis although she is not taking any medications for this.? Patient presents to the ED on 07/29/2022 with chief complaint of flank pain and dysuria.? Patient stated that several weeks ago she had begun having? discomfort with urination although she did not do much about? her symptoms. Associated symptoms included lack of appetite , flank pain and strong odor of her urine. In the ER patient was found to white blood cell count of 21.6.? UA with 3+ blood, positive nitrates, 3+ leukocyte esterase, 3-5 rbc's, greater than 100 wbc's and 4+ bacteria.? Urine sent for culture and pending results.? Patient was started IV ceftriaxone 1 g Q [address] abdomen pelvis revealed left nephrolithiasis including obstructing 5 mm distal left ureteral stone with [id number] left hydronephrosis.? Urology consulted.? Patient underwent cystoscopy and left ureteral stent placement.? Urology recommended treatment of urinary tract infection before removal of stone.? Patient will follow urology as outpatient once infection is cleared. Urology recommends follow-up in 10-14 days for stone management. Patient's symptoms improved with antibiotic therapy. Urine culture positive for E coli and sensitive to ceftriaxone. Patient's labs and vital signs are stable and she is able to be discharged on oral antibiotic therapy to be continued for an additional 8 days. Patient will have a total of 10 days of antibiotic therapy for urinary tract infection. Time Spent with Patient Time attestation: Total time spent providing and/or coordinating discharge services: Exam Narrative: GENERAL: Comfortable, no acute distress HENMT: moist mucous membranes EYES: EOM intact b/l NECK: no lymphadenopathy RESPIRATORY: clear to auscultation CARDIO: RRR GI: soft, nontender, bowel sounds present , no CVA tenderness SKIN: no rashes EXTREMITIES: no edema, redness or tenderness DS: Data Data Completed and Pending Labs on day of discharge: Labs from last 24 hours 08/01/22 08/01/22 06:29 06:29 WBC 8.5 RBC 3.90 L Hgb 11.4 L Hct 36.1 L MCV 92.6 MCH 29.2 MCHC 31.6 L RDW 13.0 Plt Count 303 MPV 10.9 H Immature Gran % (Auto) 0.4 Neut % (Auto) 61.6 Lymph % (Auto) 24.7 [place] % (Auto) 9.2 H Eos % (Auto) 3.4 Baso % (Auto) 0.7 Lymph # (Auto) 2.10 [place] # (Auto) 0.8 H Eos # (Auto) 0.3 Baso # (Auto) 0.1 Abs Immat Gran (auto) 0.03 Absolute Neuts (auto) 5.2 Absolute Nucleated RBC 0.0 Nucleated RBC % 0.0 Sodium 137 Potassium 3.7 Chloride 103 Carbon Dioxide 26 An
== END 2022-08-01 13:34 | disposition home or self-care (01) | DRG 661 ==
LOC: ANHED 07-30 02:21 → ANH3MED 07-30 02:51
PROVIDERS: Urology; Admitting Provider Internal Medicine; Emergency Provider Physician Assistant; Visit Provider Internal Medicine Critical Care Medicine
PROC: 0T778DZ Dilation of Left Ureter with Intraluminal Device, Via Natural or Artificial Opening Endoscopic (ICD-10-PCS; CPT 52352; principal; 2022-07-30 06:30)
DX: N13.6 Pyonephrosis (principal); Z87.891 Personal history of nicotine dependence; M81.0 Age-related osteoporosis without current pathological fracture
CPT/HCPCS: 36415; 74018; 74177; 80048; 80053; 81001; 83605; 85025; 85027; 87040; 87077; 87086; 87186; 96361; 96365; 96367; 96375; 96376; 99285; A9270; C1758; C1769; C2617; G0378; J0131; J0696; J2250; J2405; J2704; J3010; J7030; J7120; Q9967

== ENCOUNTER 2022-08-14 00:03 | Day surgery (SDC) | payer MEDICARE, BC, OTHER, SELFPAY ==
[2022-08-02 14:58] VITALS: BMI 25.9
--- NOTE | 2022-08-02 15:23 | PC.NURSE ---
Report to the Outpatient Waiting Room, entrance under the green pavilion located off [facility], at time __10:00AM on date __08/14/22 . Planned Procedure Time: __12:00PM . Time changes happen often and if your time is changed the preop area will call you the afternoon before. - You and your visitor will be asked to self-screen and do not enter if you have any COVID symptoms. - A mask is optional within the hospital at this time. Patients may have clear liquids (water, carbonated beverages, clear teas, apple juice) until 3 hours prior to surgery with a maximum of 20 ounces. - No food from midnight until time of surgery Take the following medications with a SIP of water the morning of surgery: __NONE DO NOT STOP ANY OF YOUR OTHER PRESCRIPTION MEDICATIONS PRIOR TO SURGERY ?EXCEPT THE FOLLOWING Medications to discontinue per physician __HOLD ASPIRIN FOR 7 DAYS PRE-OP PER DR PRETTY Date to take last dose___08/07/22 Please no make-up, nail belizean, hairspray, perfume, deodorant, or body powder the day of surgery. No jewelry (including any body piercings) or valuables the day of surgery, leave them at home. Please take a shower or bath the night before, or the morning of, surgery with an antibacterial soap. Wear comfortable, loose fitting clothing. Children are encouraged to wear pajamas. - Jewelry must be removed prior to entering the operating room. Rings and piercings that are not removed may be cut off. - The hospital will not accept responsibility for valuables. - Please leave all valuables, including medications, at home the day of surgery. If you are going home after surgery, a licensed local owner operator truck driver must drive you home. - NO public transportation without another adult if you receive anesthesia. - We recommend that an adult stay with you for 24 hours following discharge. - We also recommend that you do not drive, make important decision, drink alcoholic beverages, or take any drugs that were not prescribed by your health care provider for at least 24 hours after your discharge time. Follow any additional instructions given to you from your surgeon. If you or anyone in your household have experienced Covid symptoms in the past week, please notify your surgeon or the nurse liaison at the phone number below for possible testing. Telephone instructions given to __PATIENT and asked if any additional questions and then verbalized understanding. Patient advised to call surgeon office or pre surgery nurse liaison [phone] if any additional questions.
[2022-08-14] VITALS (7 sets, daily range): BP systolic 113–135; BP diastolic 70–76; PULSE 59–69; RESP 12–18; TEMP 36.1; O2SAT 99–100
--- NOTE | ~2022-08-14 | XR_ITS ---
EXAMINATION: XR retrograde pyelo w/stent LT DATE: 08/14/2022 13:05 INDICATION: Left internal ureteral stent placement TECHNIQUE: Fluoroscopic images from a left internal ureteral stent placement are submitted for review . 18 seconds of fluoroscopy time. 5 fluoroscopic images. FINDINGS: There is a left double-J internal ureteral stent projecting in expected position, with proximal [place] loop at the level of the renal pelvis and distal loop in the pelvis within the bladder lumen. IMPRESSION: 1. Left internal ureteral stent placement. Please refer to real-time procedural findings for detail s. Reviewed, dictated and finalized at location A. IMPRESSION: 1. Left internal ureteral stent placement. Please refer to real-time procedur al findings for details.
[2022-08-14] MEDS: LACTATED RINGERS 1,000 ML 30 ML IV CONT (10:30)
--- NOTE | 2022-08-14 11:10 | WPDANESEPPF ---
Anes - Initial Pre Proc Eval Procedure: Operation Date: 08/14/22 12:00 Proposed Procedures p Cystoscopy, Left Ureteroscopy, Left Retrograde Pyelogram, Left Stone Extraction, Possible Left Stent Placement, Possible Holmium Laser Procedure - Bryson Fisher MD Date/Time: 08/14/22 11:10 Surgeon: Bryson Fisher MD Pre Op Diagnosis: Left ureteral stone Patient Data Age: 72 Gender: F Height: 1.68 m Weight: 69.4 kg Last Vital Signs Temp 36.1 C L 08/14/22 10:07 Pulse 59 L 08/14/22 10:07 Resp 18 08/14/22 10:07 BP 113/74 08/14/22 10:07 Pulse Ox 100 08/14/22 10:07 O2 Del Method Room Air 08/14/22 10:07 Allergies Allergy/AdvReac Type Severity Reaction Status Date / Time Penicillins Allergy Unknown Rash Verified 08/14/22 10:13 Sulfa (Sulfonamide Allergy Unknown Rash Verified 08/14/22 10:13 Antibiotics) amoxicillin AdvReac Unknown Rash Verified 08/14/22 10:13 Home Medications Medication Instructions Recorded Confirmed Type aspirin 81 mg capsule 81 mg PO PRN PRN Fever Or Pain 07/30/22 08/02/22 History esomeprazole magnesium 20 mg 20 mg PO PRN PRN Acid Reflux 07/30/22 08/02/22 History capsule,delayed release (Nexium) ibuprofen 200 mg tablet 200 mg PO Q6H PRN Pain 08/02/22 08/02/22 History ciprofloxacin HCl 500 mg tablet 500 mg PO BID 08/14/22 08/14/22 History Patient hx anesthesia problems: none Family hx anesthesia problems: none Results Review: All pre-operative results and documents have been reviewed as part of the pre-operative evaluation. [facility] Past Medical History Medical History (Updated 08/14/22 @ 11:11 by Jose Tripathi MD) History of renal stone Osteoporosis Surgical History Surgical History (Updated 08/14/22 @ 11:11 by Jose Tripathi MD) History of tubal ligation Hx of cystoscopy Family History Family History Sibling Patient's sister is in good health Patient's brother is in good health Father Acute myocardial infarction, Onset Age: 69 Patient's father is Mother Patient's mother is Family history of throat cancer Social History Social History Social History: patient is a former smoker that stopped smoking in 1981 and states that she smoked and unknown amount a day. Patient does not consume alcohol or her taken drug use. Patient is a in both of her children have passed as well. Smoking packs per day: 0.2 Smoking cigarettes per day: 4.0 Years smoked: 4 Smoking pack-years: 0.80 Smoking status: Former smoker Tobacco type: cigarettes Smoking end date: 10/28/83 Alcohol intake: former Substance use: never Lack of Transportation: No Lack of Food: Never True Current Housing: I Have Housing Concerned About Future Housing: No Difficulty Paying Gas/Electric Bills: No Difficulty Paying for Meds: No Currently Unemployed: No Education: Decline to Answer Difficulty w/ Childcare or Family Care: No Living arrangements: alone Spiritual care concerns: No Anes - Eval Final PreProcedure Day of Procedure 08/14/22 11:10 Patient weight: normal Heart: regular rate and rhythm Lungs: clear to auscultation Airway: Mallampati scale class II Neurological: alert and oriented Last oral intake: >/= 8 hours ASA classification: II Emergent: no Anesthetic plan: proceed Anesthesia type and monitoring: general LMA and standard monitoring Results Review: All pre-operative results and documents have been reviewed as part of the pre-operative evaluation. Informed Consent: The patient's anesthetic plan and its attendant risks and benefits were discussed with the patient/family/POA. Questions were solicited and answers provided to the satisfaction of the patient/family/POA.
--- NOTE | 2022-08-14 12:01 | WPDHPUPDATE1 ---
History and Physical Update Update Date/Time: 08/14/22 12:01 History and Physical has been reviewed, including an updated exam of the patient. There are NO changes in the patient's condition. Risks, benefits, and alternatives have been discussed and questions answered. Patient agrees to proceed with procedure. Proceed with cysto, left retrograde pyelogram, possible left ureteroscopy with stone extraction, stent exchange
[2022-08-14] MEDS: ceFAZolin 2 GM/D5W 50 ML 2 GM/50 ML BAG IVPB (12:17)
[2022-08-14] MEDS: LIDOCAINE HCL 2% GEL UROJET 10 ML PKG MUCOUS MEM (12:38)
--- NOTE | 2022-08-14 12:58 | P.OP_ITS ---
Procedure Note - Detailed Date of Procedure 08/14/22 Pre-op Diagnosis Left ureteral stone Post-op Diagnosis Same Procedure Performed Cystoscopy, left retrograde pyelogram, left ureteroscopy with holmium laser, stone extraction, left stent exchange 4.8 [place] contour Surgeon Bryson Fisher MD Anesthesia General Description of Procedure Patient is taken the operative suite correctly identified. Once anesthesia was obtained she was placed in dorsal lithotomy position and prepped draped usual sterile fashion. Twenty-two [place] scope was inserted into the bladder. The stent was grasped brought out to the meatus. Guidewire was inserted through the stent. A rigid ureteral scope was then placed the stone was visualized. It was impacted and I could not get a basket around it. We thus used a 200 micron fiber and lasered the stone. The pieces were so small they were too small to retrieve to sent for analysis. Nonetheless reinspection revealed no residual stones. Pyelogram was then performed to confirm placement of a stent placement. 4.8 [place] contour stent was then placed with the proximal end coiled in the left renal pelvis and the distal in the bladder. Bladder was drained. 2% viscous lidocaine was inserted urethra patient is taken recovery stable condition. She will follow-up in a week's time for stent removal. Please send a copy of op note to my office Estimated Blood Loss 0 Drains Yes Packing No Pathology None sent Complications No immediate complications Condition Stable Disposition PACU
[2022-08-14] MEDS: fentaNYL CITRATE INJ (*CRX) 100 MCG/2 ML VIAL 25 MCG IV PUSH ×2 (13:21→13:38)
[2022-08-14] MEDS: oxyCODONE HCL (*CRX) 5 MG TAB IR PO (13:51)
== END 2022-08-14 14:30 | disposition home or self-care (01) ==
PROVIDERS: Visit Provider Urology
PROC: (CPT 52352; principal; 2022-08-14 12:00)
DX: N20.1 Calculus of ureter (principal); Z79.82 Long term (current) use of aspirin; Z87.891 Personal history of nicotine dependence
CPT/HCPCS: 52356; 74420; A9270; C1758; C1769; C2617; J0690; J1100; J2405; J2704; J3010; J7120

== ENCOUNTER 2022-10-12 16:49 | Outpatient (CLI) | payer MEDICARE, BC, OTHER, SELFPAY ==
--- NOTE | ~2022-10-12 | XR_ITS ---
XR abdomen/kub 1V 10/12/2022 17:10 Indication: Left ureteral stone Procedure: KUB Comparison: 08/01/2022 Findings: Bowel pattern is nonobstructive. Moderate colonic fecal loading. There is a left pelvic phl ebolith. No definite stones identified overlying the kidneys or expected course of the ureters. Inter sylvia removal of left internal ureteral stent. Moderate colonic fecal loading. Nonobstructive bowel gas pattern. Impression: 1: No acute abdominal abnormality. No definite urolithiasis identified. Reviewed, dictated and finalized at location A. Impression: 1: No acute abdominal abnormality. No definite urolithiasis identified.
== END 2022-10-12 16:50 | disposition home or self-care (01) ==
PROVIDERS: Visit Provider Urology
DX: N20.1 Calculus of ureter (principal); N20.0 Calculus of kidney
CPT/HCPCS: 74018; 87086; 87088

== ENCOUNTER 2025-01-13 12:45 | Outpatient (CLI) | payer MEDICARE, BC, OTHER, SELFPAY ==
--- OUTSIDE RECORDS SUMMARY | 2025-01-13 12:53 | XMS_ITS | Clinical Summary ---
Author Organization [facility] Address [facility] [place] [address] Care Team Providers Care Facilities Maintenance Worker Name Role Phone Cesia Randle NP Primary Care Provider [phone] [phone] Allergies Active Allergy Reactions Criticality Noted Date Comments Amoxicillin Rash Low 04/11/2022 Antihistamines, Chlorpheniramine-Type Swelling 06/27/2018 All antihistamines positive allergy test Penicillins Rash Medium 11/01/2016 Rash occurred after 10th day of taking med, in 2011 Medications Saccharomyces boulardii (PROBIOTIC) 250 MG Cap daily Active vitamin D3, cholecalciferol, 5000 UNITS capsule Take 1 capsule by mouth daily. Active Menaquinone-7 (VITAMIN K2) 100 MCG Cap Take by mouth daily. Active Multiple Vitamins-Minerals (DEVAN MULTIVITAMIN FOR WOMEN) Tab Take 2 tablets by mouth daily. Active magnesium chloride EC 70 MG tablet Take 64 mg by mouth daily. Active Calcium Aspartate 75 MG Tab Take by mouth 2 (two) times a day. Active VITAMINS A C E-ZN OR Active aspirin 81 MG chewable tablet Chew 324 mg by mouth daily. Active Multiple Vitamin (MULTIVITAMIN) capsule Take 2 tablets by mouth daily. 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 Use for forteo injections 400 each 1 0 Active estradiol 0.1 MG/GM vaginal cream 2 Active Active Problems Problem Noted Date Diagnosed Date IFG (impaired fasting glucose) 05/09/2021 Overview (06/27/2021): Last Assessment & Plan: Continue to work on a low carb diet Cervical stenosis (uterine cervix) 04/16/2019 Overview (06/27/2021): Overview: Added automatically from request for surgery [id number] Added automatically from request for surgery [id number] Last Assessment & Plan: Unable to have D+C Will follow up with RAG SHREDDER tomorrow Update me after the visit Added automatically from request for surgery [id number] Last Assessment & Plan: She has follow up scheduled with RAG SHREDDER PMB (postmenopausal bleeding) 04/16/2019 Overview (05/05/2019): Overview: Added automatically from request for surgery [id number] Last Assessment & Plan: Patient has also seeing Gyne on could for postmenopausal bleeding This may also be a source for her hematuria though she had an area seen on her cystoscopy that could also cause hematuria Continue to follow her specialist Update me if they are planning on doing a procedure Call for questions or concerns Overweight with body mass index (BMI) 25.0-29.9 03/20/2019 Overview (06/27/2021): Last Assessment & Plan: BMI Follow-up includes: nutrition counseling. Last Assessment & Plan: BMI Follow-up includes: nutrition counseling. Last Assessment & Plan: BMI Follow-up includes: nutrition counseling. Microhematuria 10/08/2018 Overview (06/27/2021): Last Assessment & Plan: Will recheck at next visit Palpitations 08/15/2018 Sacroiliitis 07/07/2018 Overview (06/27/2021): Last Assessment & Plan: Continue supportive care Urge incontinence of urine 06/20/2018 Overview (06/27/2021): Last Assessment & Plan: Not on medication Continue to monitor Sciatica, right side 02/14/2018 Overview (06/27/2021): Last Assessment & Plan: Continue supportive care Pure hypercholesterolemia 08/01/2017 Overview (06/27/2021): Overview: CVD 4.2 % Last Assessment & Plan: CVD score 4.2% Continue working on healthy changes Recheck in 6-12 months Update me with any changes Call for questions or concerns CVD 4.2 % Last Assessment & Plan: CVD 5.3% We discussed medication-she is not interested in medication If it continues to improve, she does not need medication Update me with any changes Call for questions or concerns CVD 4.2 % Last Assessment & Plan: CVD score 7.1% We discussed the pros/cons She is going to work on healthy changes Gastroesophageal reflux disease without esophagi tis 07/17/2017 Overview (05/05/2019): Last Assessment & Plan: Reviewed risks of nexium including c diff and pneumonia Monitor symptoms, does want to continue it Call for questions or concerns Hip pain 05/06/2017 Abnormal thyroid function test 11/04/2016 Osteoporosis without current pathological fractu re 11/01/2016 Overview (06/27/2021): Last Assessment & Plan: Continue to follow with her specialist Update me with any changes Inflammatory disorder 11/01/2016 Overview (05/05/2019): Description: left arm Description: arm Dysphagia 11/01/2016 Inflammation around joint 11/01/2016 Overview (04/07/2020): Description: left arm Description: arm DDD (degenerative disc disease), cervical 2016 Lumbar radiculopathy 03/25/2012 Overview (06/27/2021): Last Assessment & Plan: Off medication currently Last Assessment & Plan: Stable Continue supportive care Unspecified dyspareunia (CODE) 03/25/2012 Vaginal pain 03/25/2012 Immunizations Immunization Administration Dates Next Due Fluzone High Dose - >Age 65 (Prefilled Syringe) 01/30/2018 Influenza (Generic) 02/20/2021,05/06/2017 Influenza Adult (Generic) 01/30/2019,01/30/2018, 05/06/2017 Pneumococcal (Pneumovax 23) 05/06/2018 Pneumococcal (Prevnar 13) 05/06/2017 Family History Medical History Relation Comments Cancer Brother Hypertension Brother Seizures Cousin Heart Father Heart Disease Father Diabetes Maternal Aunt Heart Maternal Aunt Cancer Mother Rheumatoid Arthritis Mother osteopenia Mother Alzheimers Paternal Uncle Relation Status Comments Brother Alive Cousin Father Maternal Aunt Alive Mother Paternal Uncle Social History Tobacco Use Types Packs/Day Years Used Date Smoking Tobacco: Former Cigarettes Q uit: 1982 Smokeless Tobacco: Never Tobacco Cessation:Counseling Given: Yes Alcohol Use Standard Drinks/Week Comments No 0 (1 standard drink = 0.6 oz pur e alcohol) AUDIT-C Answer Date Recorded Frequency of Alcohol Consumption Never 05/01/2018 Average Number of Drinks Not on file 019 Frequency of Binge Drinking Not on file 06/2018 PHQ-2 Answer Date Recorded Patient Health Questionnaire-2 Score 0 04/11/2022 Comments No Sex and Gender Information Value Date Recorded Sex Assigned at Not on file Legal Sex Female 9:26 PM CDT Gender Identity Not on file Sexual Orientation Not on file Occupation Industry Job Start Date Job End Date Retired from [employer] Not on file Not on file Not on file Last Filed Vital Signs Vital Sign Reading Time Taken Comments Blood Pressure 135/86 04/11/2022 3:43 PM ADMINISTRATIVE SUPPORT TECHNICIAN Pulse 77 04/11/2022 3:43 PM ADMINISTRATIVE SUPPORT TECHNICIAN Temperature 36.1 C (97 F) 04/11/2022 3:43 PM ADMINISTRATIVE SUPPORT TECHNICIAN Respiratory Rate 18 04/11/2022 3:43 PM ADMINISTRATIVE SUPPORT TECHNICIAN Oxygen Saturation 97% 04/11/2022 3:43 PM ADMINISTRATIVE SUPPORT TECHNICIAN Inhaled Oxygen Concentration - - Weight 71.7 kg (158 lb 1.6 oz) 04/11/2022 3:43 P M ADMINISTRATIVE SUPPORT TECHNICIAN Height 165.1 cm (5' 5) 04/11/2022 3:43 PM ADMINISTRATIVE SUPPORT TECHNICIAN Body Mass Index 26.31 04/11/2022 3:43 PM ADMINISTRATIVE SUPPORT TECHNICIAN Plan of Treatment Health Maintenance Due Date Last Done Comments DTaP, Tdap and Td Vaccines (1 - Tdap) 1971 Zoster Vaccines (1 of 2) 2002 Colorectal Cancer Screening Colonoscopy (10 Years) 10/14/2010 10/14/2000 Annual Medicare Wellness Visit 2017 Mammogram Screening 06/28/2023 06/27/2021, 05/14/2019, 07/04/2017, Additional history exists PHQ-2 (Physician [place]) 04/29/2024 COVID-19 Vaccine ( season) 2024 RSV Immunization or 60+ Years (1 - 1-dose 75+ series) 2027 Pneumococcal Vaccine: 50+ Years Completed 05/06/2018, 05/06/2017 Dexa Scan (General) Completed 03/28/2021, 03/28/2021, 04/06/2020, Additional history exists Hepatitis C Completed 09/15/2021 Meningococcal B Vaccine Aged Out No l onger eligible based on patient's age to complete this topic Meningococcal Vaccine Aged Out No zach tania eligible based on patient's age to complete this topic RSV Immunizations Under 20 Months Aged Out No longer eligible based on patient's age to complete this topic Procedures Procedure Name Priority Date/Time Associated Diagnosis Comments HEPATITIS C ANTIBODY Routine 09/15/2021 7:07 PM CDT Need for hepatitis C screening test MG SCREENING W DLEL LIAM DIGI Routine 06/27/2021 1:08 PM ADMINISTRATIVE SUPPORT TECHNICIAN Screening mammogram for breast cancer BONE DENSITY/DEXA Routine 03/28/2021 3:0 2 PM ADMINISTRATIVE SUPPORT TECHNICIAN Age-related osteoporosis without current pathological fracture COLONOSCOPY GENERIC (SCAN ORDER) 10/14/2000 from Last 3 Months or Most Recently Relevant to Health Maintenance Results * HEPATITIS C ANTIBODY (09/15/2021 7:07 PM CDT) HEPATITIS C AB NON-REACTI VE NON-REACT TANNER 09/15/2021 9:41 PM CDT [facility] Comment: ANTIBODIES TO HCV NOT DETECTED. DOES NOT EXCLUDE THE POSSIBILITY OF EXPOSURE TO HCV. 09/15/2021 7:07 PM CDT Cesia Randle PET CARE TECHNICIAN LABORATORY Final Res ult [facility] [address] [place] [address], [id number] * MG SCREENING W DELL LIAM DIGI (06/27/2021 1:08 PM ADMINISTRATIVE SUPPORT TECHNICIAN) Anatomical Region Laterality Modality Breast Bilateral Mammography 06/27/2021 2:24 PM ADMINISTRATIVE SUPPORT TECHNICIAN Impressions 06/27/2021 2:25 PM ADMINISTRATIVE SUPPORT TECHNICIAN =====IMPRESSION:===== No mammographic findings suggestive of malignancy ASSESSMENT: ACR BI-RADS 2 - BENIGN FINDING(S) Recommendation: 1: Routine Screening Bilateral COMMENTS: Ordered By: CESIA RANDLE Interpreted By: Nick Srivastava MD, 06/27/2021 2:24 PM Narrative 06/27/2021 2:25 PM ADMINISTRATIVE SUPPORT TECHNICIAN EXAMINATION: Digital bilateral screening mammogram with 3-D tomosynthesis EXAM DATE/TIME: 06/27/2021 12:51 PM REASON FOR EXAM: screening mammogram COMPARISON: June 2017, April 2019 TECHNIQUE: Digital screening mammography of both breasts was performed in addition to 3-D Tomosynthesis technique. This study was read with the assistance of a computer-aided detection system. TISSUE DENSITY: There are scattered areas of fibroglandular density. FINDINGS: No suspicious masses, malignant appearing calcifications, skin thickening or other abnormalities are present. No significant change from the prior exam. Cesia Randle PET CARE TECHNICIAN MAMMO Final Res ult * BONE DENSITY/DEXA (03/28/2021 3:02 PM ADMINISTRATIVE SUPPORT TECHNICIAN) Anatomical Region Laterality Modality Bone Mammography 03/28/2021 3:07 PM ADMINISTRATIVE SUPPORT TECHNICIAN Impressions 03/28/2021 3:09 PM ADMINISTRATIVE SUPPORT TECHNICIAN Impression: BMD measured at AP lumbar spine and both femoral necks at WHO category level of osteopenia. BMD measured at both total hips at level of normal. BMD measured at AP lumbar spine and both total hips slightly increased since study 04/06/2020. Ordered By: BAKARI ROSENBERG Interpreted By: Ventura Moraes MD, 03/28/2021 3:07 PM Narrative 03/28/2021 3:09 PM ADMINISTRATIVE SUPPORT TECHNICIAN Examination: DEXA Bone densitometry EXAM DATE: 03/28/2021 2:57 PM Clinical history: Postmenopausal. Parent with history of hip fracture. Treatment for osteoporosis. Technique: DEXA bone minimal density evaluation was performed in the AP projection over the lumbar spine and over both hips in the AP projection utilizing standard imaging techniques. Assessment: The BMD measured at the AP spine L1-L4 is 0.863 g/cm? with a T-score of -1.7 and a Z-Score of 0.4. The patient is considered osteopenic according to World Health Organization (WHO) criteria. Bone density is between 10 and 25% below young normal. Fracture risk is moderate. Treatment is advised. The BMD measured at the AP lumbar spine has increased 0.017 g/sq cm since study 04/06/2020. The BMD measured at the femur total left is 0.839 g/cm? with a T-score of -0.8 and a Z-Score of 0.6. Bone density is up to 10% below young normal. This patient is considered normal according to the World Health Organization (WHO) criteria. Fracture risk is low. The BMD measured at the left femoral neck is 0.690 g/sq cm resulting in a T score of -1.4 and a Z score of 0.3, values at the WHO category level of osteopenia. The BMD measured at the femur total right is 0.817 g/cm? with a T-score of -1.0 and aZ-Score of 0.4. Bone density is up to 10% below young normal. This patient is considered normal according to the World Health Organization (WHO) criteria. Fracture risk is low. The BMD measured at the right femoral neck is 0.642 g/sq cm resulting in a T score of -1.9 and a Z score of -0.1, values at the WHO category level of osteopenia. The bone mineral density measured over the total of both hips has increased 0.053 g/sq cm since study 04/06/2020. FRAX results: 10 year probability of major osteoporotic fracture 18% and of hip fracture 3.3%. Recommendations: All patients should ensure an adequate intake of dietary calcium and vitamin D. The NOF recommend adults under the age of 50 need 1000 mg of calcium and 400-800 IU of vitamin D daily. Effective therapy for the prevention and treatment of osteoporosis include biphosphonates. Follow-up: People with diagnosed cases of osteoporosis or at high risk for fracture should have regular bone mineral density test. For patients eligible for Medicare, routine testing is allowed once every 2 years. Testing frequency can be increased to one year for patients who have rapidly progressing disease, those who are receiving or discontinuing medical therapy to restore bone mass, or have additional risk factors. Based on these results, a followup exam is recommended in no earlier than 2 years. Procedure Note Ventura Moraes MD - 03/28/2021 Examination: DEXA Bone densitometry EXAM DATE: 03/28/2021 2:57 PM Clinical history: Postmenopausal. Parent with history of hip fracture.Treatment for osteoporosis. Technique: DEXA bone minimal density evaluation was performed in the APprojection over the lumbar spine and over both hips in the AP projectionutilizing standard imaging techniques. Assessment: The BMD measured at the AP spine L1-L4 is 0.863 g/cm? with a T-score of-1.7 and a Z-Score of 0.4. The patient is considered osteopenicaccording to World Health Organization (WHO) criteria. Bone density isbetween 10 and 25% below young normal. Fracture risk is moderate.Treatment is advised. The BMD measured at the AP lumbar spine has increased 0.017 g/sq cm sincestudy 04/06/2020. The BMD measured at the femur total left is 0.839 g/cm? with a T-score of-0.8 and a Z-Score of 0.6. Bone density is up to 10% below youngnormal. This patient is considered normal according to the World HealthOrganization (WHO) criteria. Fracture risk is low. The BMD measured at the left femoral neck is 0.690 g/sq cm resulting in aT score of -1.4 and a Z score of 0.3, values at the WHO category level ofosteopenia. The BMD measured at the femur total right is 0.817 g/cm? with a T-score of-1.0 and aZ-Score of 0.4. Bone density is up to 10% below young normal.This patient is considered normal according to the World HealthOrganization (WHO) criteria. Fracture risk is low. The BMD measured at the right femoral neck is 0.642 g/sq cm resulting in aT score of -1.9 and a Z score of -0.1, values at the WHO category level ofosteopenia. The bone mineral density measured over the total of both hips hasincreased 0.053 g/sq cm since study 04/06/2020. FRAX results: 10 year probability of major osteoporotic fracture 18% andof hip fracture 3.3%. Recommendations: All patients should ensure an adequate intake of dietary calcium andvitamin D. The NOF recommend adults under the age of 50 need 1000 mg ofcalcium and 400-800 IU of vitamin D daily. Effective therapy for theprevention and treatment of osteoporosis include biphosphonates. Follow-up: People with diagnosed cases of osteoporosis or at high risk for fractureshould have regular bone mineral density test. For patients eligible forMedicare, routine testing is allowed once every 2 years. Testing frequencycan be increased to one year for patients who have rapidly progressingdisease, those who are receiving or discontinuing medical therapy torestore bone mass, or have additional risk factors. Based on these results, a followup exam is recommended in no earlier than2 years. Impression: BMD measured at AP lumbar spine and both femoral necks at WHO categorylevel of osteopenia. BMD measured at both total hips at level of normal. BMD measured at AP lumbar spine and both total hips slightly increasedsince study 04/06/2020. Ordered By: BAKARI ROSENBERG Interpreted By: Ventura Moraes MD, 03/28/2021 3:07 PM Bakari Rosenberg MD DEXA Final Result * COLONOSCOPY GENERIC (10/14/2000) 10/14/2000 [facility] Scanned SCANNING Final Resu lt from Last 3 Months or Most Recently Relevant to Health Maintenance Insurance MEDICARE [facility]UMAN Sellf Care Teams Facilities Maintenance Worker Relationship Specialty Start Date End Date Cesia Randle NP [address] [place] [address] PCP - General NURSE PRACTITIONER 05/16/21
--- OUTSIDE RECORDS SUMMARY | 2025-01-13 12:53 | XMS_ITS | Encounter Summary ---
Author Organization [facility] Care Team Providers Care Pain Management Nurse Name Role Phone Lexy Reed MD Primary Care Provi thom Encounter Details Date Type Department Care Team (Latest Contact Info) Description 06/20/2018 Orders Only [facility] CLINCONV ProviderFlo MD [address] [place] [id number] Social History Tobacco Use Types Packs/Day Years Used Date Smoking Tobacco: Never Comments Unknown Sex and Gender Information Value Date Recorded Sex Assigned at Not on file Legal Sex Female 1:48 AM SNOUT PULLER Gender Identity Not on file Sexual Orientation Not on file documented as of this encounter Plan of Treatment Not on file documented as of this encounter Procedures Procedure Name Priority Date/Time Associated Diagnosis Comments CARDIOLOGY REPORT 06/25/2018 12: 00 AM SNOUT PULLER documented in this encounter Results * CARDIOLOGY REPORT (06/25/2018 12:00 AM SNOUT PULLER) Anatomical Region Laterality Modality Other Narrative 06/25/2018 12:00 AM SNOUT PULLER Ordered by an unspecified provider. Historical Provider [facility] CARMEN HAGER Final Result documented in this encounter Visit Diagnoses Not on filedocumented in this encounter Care Teams Pain Management Nurse Relationship Specialty Start Date End Date Lexy Reed MD [address] [place] [address] PCP - General Family Medicine 04/04/18 documented as of this encounter
--- OUTSIDE RECORDS SUMMARY | 2025-01-13 12:53 | XMS_ITS | Encounter Summary ---
Author Organization [facility] Address [address] [place] [address] Care Team Providers Care Core Maker Name Role Phone Lexy Reed MD Primary Care Provider Cesia Randle NP Primary Care Provider [phone] Encounter Details Date Type Department Care Team (Late st Contact Info) Description 04/27/2021 Therapy Plan [facility] Diabetes and Endocrinology - [address] [address] [place] [address] [place] [address] Social History Tobacco Use Types Packs/Day Years Used Date Smoking Tobacco: Former Cigarettes Q uit: 1982 Smokeless Tobacco: Never Alcohol Use Standard Drinks/Week Comments No 0 (1 standard drink = 0.6 oz pur e alcohol) AUDIT-C Answer Date Recorded Frequency of Alcohol Consumption Never 05/01/2018 Average Number of Drinks Not on file 019 Frequency of Binge Drinking Not on file 06/2018 PHQ-2 Answer Date Recorded PHQ-2 Score - If the patient scores above 3, please move on to questions 3-9 0 04/27/2021 Comments No Sex and Gender Information Value Date Recorded Sex Assigned at Not on file Legal Sex Female 9:26 PM CDT Gender Identity Not on file Sexual Orientation Not on file Occupation Industry Job Start Date Job End Date Retired from [employer] Not on file Not on file Not on file COVID-19 Exposure Response Date Recorded In the last month, have you been in contact with someone who was confirmed or suspected to have Coronavirus / COVID-19? No / Unsure 04/27/2021 10:43 AM FINANCIAL RECRUITER documented as of this encounter Plan of Treatment Not on file documented as of this encounter Visit Diagnoses Not on filedocumented in this encounter Additional Health Concerns Assessment Noted Time PHQ-9 Depression Total Score: 0 04/27/20 10:53 AM FINANCIAL RECRUITER documented as of this encounter Care Teams Core Maker Relationship Specialty Start Date End Date Lexy Reed MD [address] [place] [address] PCP - General FAMILY PRACTICE 02/05/18 05/15/21 Cesia Randle NP [address] [place] [address] PCP - General NURSE PRACTITIONER 05/16/21 documented as of this encounter
--- OUTSIDE RECORDS SUMMARY | 2025-01-13 12:53 | XMS_ITS | Encounter Summary ---
Author Organization [facility] Address [address] [place] [address] Care Team Providers Care Service Delivery Consultant Name Role Phone Cesia Randle NP Primary Care Provider [phone] [phone] Encounter Details Date Type Department Care Team (Late st Contact Info) Description 01/11/2022 [employer] Message Enc [facility] Family Medicine - [place] [address] [address] Cesia Randle, ARABELLA [address] [place] [address] [place], [place] [id number] Amoxicillin Social History Tobacco Use Types Packs/Day Years [...] please move on to questions 3-9 0 06/27/2021 Comments No Sex and Gender Information Value Date Recorded Sex Assigned at Not on file Legal Sex Female 9:26 PM CDT Gender Identity Not on file Sexual Orientation Not on file Occupation Industry Job Start Date Job End Date Retired from [employer] Not on file Not on file Not on file COVID-19 Exposure Response Date Recorded In the last 10 days, have yo u been in contact with someone who was confirmed or suspected to have Coronavirus/COVID-19? No / Unsure 12/28/2021 2:17 PM CDT documented as of this encounter Plan of Treatment Not on file documented as of this encounter Visit Diagnoses Not on filedocumented in this encounter Additional Health Concerns Assessment Noted Time PHQ-9 Depression Total Score: 0 06/28/19 3:24 PM SIDE SAWYER documented as of this encounter Care Teams Service Delivery Consultant Relationship Specialty Start Date End Date Cesia Randle NP [address] [place] [address] PCP - General NURSE PRACTITIONER 05/16/21 documented as of this encounter
--- OUTSIDE RECORDS SUMMARY | 2025-01-13 12:53 | XMS_ITS | Encounter Summary ---
Author Organization [facility] Address [address] [place] [address] Care Team Providers Care Window Shade Ring Sewer Name Role Phone Cesia Randle NP Primary Care Provider [phone] Encounter Details Date Type Department Care Team (Late st Contact Info) Description 12/28/2021 [employer] Message Enc [facility] Family Medicine - [place] [address] [facility] [address] [place] [address] Cesia Randle, ARABELLA [address] [place] [address] Bp reading you took today, is not right Social History Tobacco Use Types Packs/Day Years [...] Start Date Job End Date Retired from [employer] Not on file Not on file [...] Depression Total Score: 0 06/28/19 3:24 PM RANGE RIDER documented as of this encounter Care Teams Window Shade Ring Sewer Relationship Specialty Start Date End Date Cesia Randle NP [address] [place] [address] [place] [address] PCP - General NURSE PRACTITIONER 05/16/21 documented as of this encounter
--- OUTSIDE RECORDS SUMMARY | 2025-01-13 12:53 | XMS_ITS | Clinical Summary ---
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 Penicillins Rash Medium 11/01/2016 Rash occurred after 10th day of taking med, in 2011 Medications calcium carbonate (CALCIUM 600 ORAL) Take 1,200 mg by mouth daily Active cholecalciferol (VITAMIN D-3) 2000 unit tablet Take 5,000 Units by mouth daily Active vitamin K2 40 mcg tablet Take 1 tablet by mouth daily Active multivitamin tabletIndication s:Vitamin Deficiency Prevention Take 1 tablet by mouth daily Active 1ST TIER UNIFINE PENTIPS PLUS 32 gauge x 5/32 needle 05/16/2019 Active magnesium chloride 70 mg of elemental magnesium delayed release tablet Take 64 mg by mouth daily Active fluticasone propionate (FLONASE) 50 mcg/actuation nasal spray 10/28/[address] (NexIUM) 20 mg capsule Take 20 mg by mouth daily Active docusate sodium (COLACE) 100 mg capsule 01/05/2019 Active Forteo 20 mcg/dose (600mcg/2.4mL) injection 02/02/2021 Active estradioL (ESTRACE) 0.01 % (0.1 mg/gram) vaginal cream 08/17/2021 Activ e Active Problems Problem Noted Date Diagnosed Date IFG (impaired fasting glucose) 05/09/2021 Assessment & Plan (05/09/2021 1:19 PM PROMOTIONAL REPRESENTATIVE): Continue to work on a low carb diet Cervical stenosis (uterine cervix) 04/16/2019 Overview (04/16/2019): Added automatically from request for surgery [id number] Assessment & Plan (05/09/2021 1:12 PM PROMOTIONAL REPRESENTATIVE): She has follow up scheduled with [facility] Assessment & Plan (05/26/2019 3:21 PM PROMOTIONAL REPRESENTATIVE): Unable to have D+C Will follow up with [facility] tomorrow Update me after the visit Encounter for Medicare annual wellness exam 02/28 Overview (05/09/2021): Encouraged healthy changes Encouraged to look into a POA, living will Health Maintenance: Last mammogram: ordered Last DEXA: following with a specialist Last colonoscopy: 05/08/12, repeat in 10 years Last Tdap: uncertain Last pneumonia/Prevnar: up to date Last Shingrix:encouraged Last Flu: up to date Last COVID: encouraged Assessment & Plan (05/09/2021 1:13 PM PROMOTIONAL REPRESENTATIVE): Encouraged healthy changes Encouraged to look into a POA, living will Health Maintenance: Last mammogram: ordered Last DEXA: following with a specialist Last colonoscopy: 05/08/12, repeat in 10 years Last Tdap: uncertain Last pneumonia/Prevnar: up to date Last Shingrix:encouraged Last Flu: up to date Last COVID: encouraged Assessment & Plan (03/20/2019 10:48 AM PROMOTIONAL REPRESENTATIVE): Work on healthy low carb diet Healthy activity for 30 minutes daily Wear sun screen, seat belts Health Maintenance: Last PAP: NA Last mammogram: ordered Last DEXA: set up Last colonoscopy: 05/08/12, repeat in 10 years Last Tdap: uncertain Last pneumonia/Prevnar: up to date Last Shingrix:encouraged Last Flu: up to date Overweight with body mass index (BMI) 25.0-29.9 03/20/2019 Overview (05/26/2019): Last Assessment & Plan: BMI Follow-up includes: nutrition counseling. Assessment & Plan (05/09/2021 1:17 PM PROMOTIONAL REPRESENTATIVE): BMI Follow-up includes: nutrition counseling. Microhematuria 10/08/2018 Assessment & Plan (05/09/2021 1:15 PM PROMOTIONAL REPRESENTATIVE): Will recheck at next visit Assessment & Plan (03/20/2019 10:53 AM PROMOTIONAL REPRESENTATIVE): Lab ordered She does follow with urology Sacroiliitis 07/07/2018 Assessment & Plan (05/09/2021 1:18 PM PROMOTIONAL REPRESENTATIVE): Continue supportive care Lumbar radiculopathy 06/27/2018 Assessment & Plan (05/09/2021 1:15 PM PROMOTIONAL REPRESENTATIVE): Stable Continue supportive care Assessment & Plan (03/20/2019 10:53 AM PROMOTIONAL REPRESENTATIVE): Has done PT and seen pain management Continue supportive care Call if symptoms change or worsen Urge incontinence of urine 06/20/2018 Assessment & Plan (05/09/2021 1:18 PM PROMOTIONAL REPRESENTATIVE): Not on medication Continue to monitor Assessment & Plan (03/20/2019 10:55 AM PROMOTIONAL REPRESENTATIVE): improved Sciatica, right side 02/14/2018 Assessment & Plan (05/09/2021 1:18 PM PROMOTIONAL REPRESENTATIVE): Continue supportive care Pure hypercholesterolemia 08/01/2017 Overview (03/31/2019): CVD 4.2 % Assessment & Plan (05/09/2021 1:18 PM PROMOTIONAL REPRESENTATIVE): CVD score 7.1% We discussed the pros/cons She is going to work on healthy changes Assessment & Plan (06/09/2019 10:10 AM PROMOTIONAL REPRESENTATIVE): CVD 5.3% We discussed medication-she is not interested in medication If it continues to improve, she does not need medication Update me with any changes Call for questions or concerns Assessment & Plan (03/31/2019 2:01 PM PROMOTIONAL REPRESENTATIVE): CVD score 4.2% Continue working on healthy changes Recheck in 6-12 months Update me with any changes Call for questions or concerns Assessment & Plan (03/20/2019 10:54 AM PROMOTIONAL REPRESENTATIVE): Labs ordered Continue healthy changes Gastroesophageal reflux disease without esophagi tis 07/17/2017 Assessment & Plan (05/09/2021 1:14 PM PROMOTIONAL REPRESENTATIVE): Stable Continue nexium Reviewed the risks/benefits Assessment & Plan (03/20/2019 10:52 AM PROMOTIONAL REPRESENTATIVE): Reviewed risks of nexium including c diff and pneumonia Monitor symptoms, does want to continue it Call for questions or concerns Osteoporosis without current pathological fractu re 07/09/2017 Assessment & Plan (05/09/2021 1:16 PM PROMOTIONAL REPRESENTATIVE): Continue to follow with her specialist Update me with any changes Assessment & Plan (03/20/2019 10:54 AM PROMOTIONAL REPRESENTATIVE): Bone density scheduled Continue calcium and vitamin d Assessment & Plan (09/30/2018 4:08 PM CDT): calcium supplementation of 5735-8546 mg daily- over 1500 mg can be detrimental vitamin d of 3084-3701 units daily can increase bone mass limit caffiene to less oh 250 mg daily consider weight bearing cardio including walking ( exercises like cycling and swimming aren\'t as helpful for the bones, but still good for heart health) resistance training 2-3 days a week. Start light, and adjust weight as you get stronger (be cautious- no injuries!) flexibility exercises 5-7 days a week- this helps prevent falls [facility] is going to hopefully get her set up with endo. If they cannot find someone, please let me know Abnormal thyroid function test 11/04/2016 Assessment & Plan (05/09/2021 1:07 PM PROMOTIONAL REPRESENTATIVE): Last TSH was normal Assessment & Plan (03/20/2019 10:50 AM PROMOTIONAL REPRESENTATIVE): Lab ordered DDD (degenerative disc disease), cervical 2016 Assessment & Plan (05/09/2021 1:12 PM PROMOTIONAL REPRESENTATIVE): Improved Continue supportive care Atrophic vaginitis 03/25/2012 Assessment & Plan (05/09/2021 1:11 PM PROMOTIONAL REPRESENTATIVE): Off medication currently Assessment & Plan (03/20/2019 10:51 AM PROMOTIONAL REPRESENTATIVE): Not on treatment currently Resolved Problems Problem Noted Date Diagnosed Date Resolved Date PMB (postmenopausal bleeding) 04/16/2019 05/09/2021 Overview (04/16/2019): Added automatically from request for surgery [id number] Assessment & Plan (04/17/2019 5:50 PM PROMOTIONAL REPRESENTATIVE): Patient has also seeing Gyne on could for postmenopausal bleeding This may also be a source for her hematuria though she had an area seen on her cystoscopy that could also cause hematuria Continue to follow her specialist Update me if they are planning on doing a procedure Call for questions or concerns Urge incontinence 04/15/2019 05/09/2021 Overweight (BMI 25.0-29.9) 03/20/2019 0 05/09/2021 Assessment & Plan (03/20/2019 10:56 AM PROMOTIONAL REPRESENTATIVE): BMI Follow-up includes: nutrition counseling. Cough 10/28/2018 03/20/2019 Assessment & Plan (10/28/2018 1:20 PM CDT): Likely post infectious Rest, hydrate Cool mist humidifier Prednisone burst Call if symptoms change or worsen Right ear pain 10/28/2018 03/20/2019 Assessment & Plan (10/28/2018 1:21 PM CDT): Exam is unremarkable Motrin or tylenol for pain flonase daily If no improvement, consider referral to ENT Call for questions or concerns Other acute sinusitis 10/13/20182018 Assessment & Plan (10/13/2018 4:42 PM CDT): Will start zithromax Tylenol/ibuprofen as needed Increase fluids, rest and handwashing Warm saltwater gargles Hot water/hot tea with honey Saline rinses to nose at least twice daily No sharing cups or utensils Cool mist humidifier May use vicks vaporub on chest and feet as needed to help with cough Please call if symptoms change or worsen, to the ER for anything emergent Lightheaded 09/30/2018 03/20/2019 Assessment & Plan (09/30/2018 4:06 PM CDT): Pt has completed her cardiology work up Asymptomatic, but does sound like vertigo Will have her stay hydrated Change positions slowly Will check labs Call if symptoms change or worsen Call for questions or concerns Localized swelling of forearm 09/30/2018 03/20/2019 Assessment & Plan (10/13/2018 4:23 PM CDT): Ultrasound reviewed We discussed further evaluation with MRI- does want to hold off If it persists, she will let me know Call for questions or concerns Assessment & Plan (09/30/2018 4:08 PM CDT): Per patient, xray negative at Will check ultrasound Rest, ice, brace as needed Tylenol as needed Call if symptoms change or worsen Chest pain 08/15/2018 03/20/2019 Palpitations 08/15/2018 05/09/2021 Hip pain 05/06/2017 05/09/2021 Inflammation around joint 11/01/2016 Overview (05/26/2019): Description: left arm Description: arm Assessment & Plan (05/09/2021 1:15 PM PROMOTIONAL REPRESENTATIVE): resolved Dysphagia 11/01/2016 05/09/2021 Encounter for general adult medical examination without abnormal findings 07/12/2016 Overview (05/09/2021): Encouraged healthy changes Encouraged to look into a POA, living will Health Maintenance: Last mammogram: ordered Last DEXA: following with a specialist Last colonoscopy: 05/08/12, repeat in 10 years Last Tdap: uncertain Last pneumonia/Prevnar: up to date Last Shingrix:encouraged Last Flu: up to date Last COVID: encouraged Assessment & Plan (05/09/2021 1:07 PM PROMOTIONAL REPRESENTATIVE): Encouraged healthy changes Encouraged to look into a POA, living will Health Maintenance: Last mammogram: ordered Last DEXA: following with a specialist Last colonoscopy: 05/08/12, repeat in 10 years Last Tdap: uncertain Last pneumonia/Prevnar: up to date Last Shingrix:encouraged Last Flu: up to date Last COVID: encouraged Vaginal pain 03/25/2012 09/04/2021 Unspecified dyspareunia (CODE) 03/25/2012 05/09/2021 Immunizations Immunization Administration Dates Next Due Influenza, Quadrivalent, Spl it, Preservative Free, Intramuscular 01/30/2019 Influenza, Trivalent, High D ose, Split, Preservative Free, Intramuscular 01/30/2018,05/06/2017 Influenza, Unspecified 02/20/2021,01/30/2018,11/2017 Pneumococcal Conjugate PCV 13 05/06/2017 Pneumococcal Polysaccharide PPV23 05/06/2018 Surgical History Surgery Date Site/Laterality Comments NO PAST SURGERIES HAND SURGERY Bilateral fractures TUBAL LIGATION Medical History Medical History Date Comments Systemic lupus erythematosus (HCC) Lupus Panniculitis With Systemic Lupus Erythematosus - (Added by TW Conv) Personal history of other di seases of the digestive system History of irritable bowel s yndrome - (Added by TW Conv) Low bone mass DDD (degenerative disc disease), cervical GERD (gastroesophageal reflux disease) Hyperlipidemia Urge incontinence Osteopenia Family History Medical History Relation Name Comments Heart disease Father Laryngeal Cancer Mother Laryngeal C ancer - (Added by TW Conv) Lymphoma Mother Rheum arthritis Mother Relation Name Status Comments Father Mother Social History Tobacco Use Types Packs/Day Years Used Date Smoking Tobacco: Former Cigarettes Q uit: 05/11/1977 Smokeless Tobacco: Never Alcohol Use Standard Drinks/Week Comments Not Currently 0 (1 standard drink = 0.6 oz pur e alcohol) AUDIT-C Answer Date Recorded Q1: How often do you have a drink containing alc ohol? Never 05/09/2021 Average Number of Drinks Not on file 022 Frequency of Binge Drinking Not on file 04/29 PHQ-2 Answer Date Recorded PHQ-2 Total Score (If total score is 3 or more points, staff should administer the PHQ-9) 0 05/09/2021 Comments No Sex and Gender Information Value Date Recorded Sex Assigned at Not on file Legal Sex Female 1:48 AM PROMOTIONAL REPRESENTATIVE Gender Identity Not on file Sexual Orientation Not on file Obstetrics History Last Filed Vital Signs Vital Sign Reading Time Taken Comments Blood Pressure 124/80 09/04/2021 2:33 PM CDT Pulse 72 05/09/2021 12:55 PM PROMOTIONAL REPRESENTATIVE Temperature 36.3 C (97.3 F) 05/09/2021 12:55 PM PROMOTIONAL REPRESENTATIVE Respiratory Rate 12 05/09/2021 12:55 PM PROMOTIONAL REPRESENTATIVE Oxygen Saturation 98% 05/09/2021 12:55 PM PROMOTIONAL REPRESENTATIVE Inhaled Oxygen Concentration - - Weight 68.5 kg (151 lb) 09/04/2021 2:33 PM CDT Height 165.1 cm (5' 5) 05/09/2021 12:55 PM PROMOTIONAL REPRESENTATIVE Body Mass Index 25.13 05/09/2021 12:55 PM PROMOTIONAL REPRESENTATIVE Plan of Treatment Not on file Insurance MEDICARE [facility] ACCESS FOR LIFE MEDICARE FOR LIFE [facility] MEDICARE [facility] FOR LIFE Care Teams Airworthiness Inspector Relationship Specialty Start Date End Date Lexy Reed MD [address] [place] [address] PCP - General Family Medicine 04/04/18
--- OUTSIDE RECORDS SUMMARY | 2025-01-13 12:53 | XMS_ITS | Encounter Summary ---
Author Organization [facility] Facility Care Team Providers Care Informatics Physician Name Role Phone Lexy Reed MD Primary Care Provi thom Encounter Details Date Type Department Care Team (Latest Contact Info) Description 03/15/2016 Orders Only [facility] CLINCONV ProviderFlo MD [address] [place] [address] Social History Tobacco Use Types Packs/Day Years Used Date Smoking Tobacco: Never Comments Unknown Sex and Gender Information Value Date Recorded Sex Assigned at Not on file Legal Sex Female 1:48 AM SUPERINTENDENT LOGGING Gender Identity Not on file Sexual Orientation Not on file documented as of this encounter Plan of Treatment Not on file documented as of this encounter Procedures Procedure Name Priority Date/Time Associated Diagnosis Comments SCAN - LABS 03/15/2016 12:00 AM SUPERINTENDENT LOGGING documented in this encounter Results * SCAN - LABS (03/15/2016 12:00 AM SUPERINTENDENT LOGGING) Narrative 03/15/2016 12:00 AM SUPERINTENDENT LOGGING Ordered by an unspecified provider. Historical Provider Final Res ult documented in this encounter Visit Diagnoses Not on filedocumented in this encounter Care Teams Informatics Physician Relationship Specialty Start Date End Date Lexy Reed MD [address] [place] [address] PCP - General Family Medicine 04/04/18 documented as of this encounter
--- OUTSIDE RECORDS SUMMARY | 2025-01-13 12:53 | XMS_ITS | Encounter Summary ---
Author Organization [facility] Facility Care Team Providers Care Research Coordinator Name Role Phone Lexy Reed MD Primary Care Provi thom Encounter Details Date Type Department Care Team (Latest Contact Info) Description 02/26/2018 Orders Only [facility] CLINCONV ProviderlFo MD [address] [place] [id number] Social History Tobacco Use Types Packs/Day Years Used Date Smoking Tobacco: Never Comments Unknown Sex and Gender Information Value Date Recorded Sex Assigned at Not on file Legal Sex Female 1:48 AM GERIATRIC SOCIAL WORKER Gender Identity Not on file Sexual Orientation Not on file documented as of this encounter Plan of Treatment Not on file documented as of this encounter Procedures Procedure Name Priority Date/Time Associated Diagnosis Comments SCAN - LABS 03/19/2018 12:00 AM GERIATRIC SOCIAL WORKER documented in this encounter Results * SCAN - LABS (03/19/2018 12:00 AM GERIATRIC SOCIAL WORKER) Narrative 03/19/2018 12:00 AM GERIATRIC SOCIAL WORKER Ordered by an unspecified provider. Historical Provider Final Res ult documented in this encounter Visit Diagnoses Not on filedocumented in this encounter Care Teams Research Coordinator Relationship Specialty Start Date End Date Lexy Reed MD [address] [place] [address] PCP - General Family Medicine 04/04/18 documented as of this encounter
--- OUTSIDE RECORDS SUMMARY | 2025-01-13 12:53 | XMS_ITS | Encounter Summary ---
Author Organization [facility] Facility Care Team Providers Care Music Grapher Name Role Phone Lexy Reed MD Primary Care Provi thom Encounter Details Date Type Department Care Team (Latest Contact Info) Description 05/08/2012 Orders Only [facility] CLINCONV ProviderFlo MD [address] [place] [address] Social History Tobacco Use Types Packs/Day Years Used Date Smoking Tobacco: Never Assessed Comments Unknown Sex and Gender Information Value Date Recorded Sex Assigned at Not on file Legal Sex Female 1:48 AM SINGLE PASS SOIL STABILIZER OPERATOR Gender Identity Not on file Sexual Orientation Not on file documented as of this encounter Plan of Treatment Not on file documented as of this encounter Procedures Procedure Name Priority Date/Time Associated Diagnosis Comments COLONOSCOPY - SCAN 05/08/2012 12 :00 AM SINGLE PASS SOIL STABILIZER OPERATOR documented in this encounter Results * COLONOSCOPY - SCAN (05/08/2012 12:00 AM SINGLE PASS SOIL STABILIZER OPERATOR) Narrative 05/08/2012 12:00 AM SINGLE PASS SOIL STABILIZER OPERATOR Ordered by an unspecified provider. Historical Provider Final Res ult documented in this encounter Visit Diagnoses Not on filedocumented in this encounter Care Teams Music Grapher Relationship Specialty Start Date End Date Lexy Reed MD [address] [place] [address] PCP - General Family Medicine 04/04/18 documented as of this encounter
--- OUTSIDE RECORDS SUMMARY | 2025-01-13 12:53 | XMS_ITS | Encounter Summary ---
Author Organization [facility] Facility Care Team Providers Care Pie Bottomer Name Role Phone Lexy Reed MD Primary Care Provi thom Encounter Details Date Type Department Care Team (Latest Contact Info) Description 07/17/2017 Orders Only [facility] CLINCONV ProviderFlo MD [address] [place] [address] Social History Tobacco Use Types Packs/Day Years Used Date Smoking Tobacco: Never Comments Unknown Sex and Gender Information Value Date Recorded Sex Assigned at Not on file Legal Sex Female 1:48 AM DISABILITY LIAISON OFFICER Gender Identity Not on file Sexual Orientation Not on file documented as of this encounter Plan of Treatment Not on file documented as of this encounter Procedures Procedure Name Priority Date/Time Associated Diagnosis Comments CARDIOLOGY REPORT 07/18/2017 12: 00 AM CDT documented in this encounter Results * CARDIOLOGY REPORT (07/18/2017 12:00 AM CDT) Anatomical Region Laterality Modality Other Narrative 07/18/2017 12:00 AM CDT Ordered by an unspecified provider. Historical Provider [facility] CARMEN HAGER Final Result documented in this encounter Visit Diagnoses Not on filedocumented in this encounter Care Teams Pie Bottomer Relationship Specialty Start Date End Date Lexy Reed MD [address] [place] [address] PCP - General Family Medicine 04/04/18 documented as of this encounter
--- OUTSIDE RECORDS SUMMARY | 2025-01-13 12:53 | XMS_ITS | Encounter Summary ---
Author Organization [facility] Address [address] [place] [address] Care Team Providers Care Engine Setter Name Role Phone Cesia Randle NP Primary Care Provider [phone] Encounter Details Date Type Department Care Team (Late st Contact Info) Description 12/28/2021 Fiksu Message Enc [facility] Family Medicine - [place] [address] [facility] [address] [place] [phone] Cesia Randle, ARABELLA [address] [place] [address] Bp misreading at. My Dr visit today Social History Tobacco Use Types Packs/Day Years [...] Start Date Job End Date Retired from [employer] Not on file Not on file [...] Depression Total Score: 0 06/28/19 3:24 PM CODING DIRECTOR documented as of this encounter Care Teams Engine Setter Relationship Specialty Start Date End Date Cesia Randle NP [address] [place] [address] PCP - General NURSE PRACTITIONER 05/16/21 documented as of this encounter
[2025-01-13 14:09] LABS: Hematocrit 42.0 % (37.0-47.0); Hemoglobin 13.4 g/dL (12.0-15.0); Immature Granulocyte Percent A 0.3 % (0-0.5); Lymphocytes Absolute Auto 2.20 K/mm3 (0.9-3.2); Mean Corpuscular HGB Conc 31.9 g/dl (32-36); Mean Corpuscular Hemoglobin 29.5 pg (26-34); Mean Corpuscular Volume 92.3 fl (80-100); Nucleated Red Blood Cells Absolute Auto 0.000 K/mm3 (0.0-0.012); Nucleated Red Blood Cells Perc 0.0 % (0.0-0.2); Platelet Count Result 298 k/mm3 (150-375); Red Blood Count 4.55 M/mm3 (4.2-5.4); White Blood Count 7.7 K/mm3 (4.5-10.0)
[2025-01-13 14:11] LABS: Add Urine Microscopic? YES; Appearance Urine Clear (Clear); Glucose Urine UA Negative (Negative); Leukocyte Esterase Ur Trace LEU/UL (Negative); Nitrate Urine Negative (Negative); Non Pathogenic Casts 0-2; Specific Grav Ur 1.021 (1.001-1.035)
[2025-01-13 15:20] LABS: Alanine Aminotransferase 22 U/L (6-35); Albumin Level 4.4 g/dL (3.5-5.1); Alkaline Phosphatase 70 U/L (38-126); Anion Gap 7 mmol/L (4-12); Aspartate Amino Transferase 33 U/L (14-36); Bilirubin,Total 0.6 mg/dL (0.2-1.3); Blood Urea Nitrogen 18 mg/dL (7-17); Calcium 9.6 mg/dL (8.4-10.2); Carbon Dioxide 27 mmol/L (22-30); Chloride 102 mmol/L (98-107); Estimated Glomerular Filt Rate 53; Glucose 98 mg/dL (65-110); Potassium 4.3 mmol/L (3.4-5.0); Sodium 136 mmol/L (137-145); Total Protein 7.9 g/dL (6.3-8.2)
[2025-01-14 11:36] LABS: Cholesterol 271 mg/dL (0-200); HDL Direct 73 mg/dL; Triglycerides 82 mg/dL (<150)
== END 2025-01-13 12:46 | disposition home or self-care (01) ==
LOC: ANHGOSHLAB 12:47
PROVIDERS: PCP Internal Medicine; Visit Provider Nurse Practitioner
DX: M81.0 Age-related osteoporosis without current pathological fracture (principal); N20.0 Calculus of kidney; E78.5 Hyperlipidemia, unspecified; Z13.220 Encounter for screening for lipoid disorders
CPT/HCPCS: 36415; 80053; 80061; 81001; 82306; 85025

== ENCOUNTER 2025-03-02 15:16 | Outpatient (CLI) | payer MEDICARE, BC, OTHER, SELFPAY ==
--- NOTE | ~2025-03-02 | CT_ITS ---
EXAMINATION: CT abdomen pelvis wo con DATE: 03/02/2025 15:36 INDICATION: CVA tenderness on the left. TECHNIQUE: Computed tomography (CT) of the abdomen and pelvis was performed without intravenous contrast. The dose-length product was 203.52 mGy-cm. Automated exposure control and iterative reconstruction technique were employed. COMPARISON: CT dated 07/30/2022 FINDINGS: Large hiatal hernia. Heart size normal. No significant pleural or pericardial effusion. There are multiple bilateral renal stones which appear nonobstructing. No ureteral stones or hydronephrosis. There are low-density lesions in the liver, most likely benign cysts. Gallbladder is present. The spleen, pancreas, adrenal glands are unremarkable. No significant vascular abnormality. No lymphadenopathy. No evidence for hernia. There is disc narrowing at L5-S1. There is grade 1 degenerative spondylol isthesis at L5-S1. IMPRESSION: 1. Bilateral nonobstructing nephrolithiasis measuring 3 mm or less.. Reviewed, dictated and finalized at location O. E WRITER
--- OUTSIDE RECORDS SUMMARY | 2025-03-02 16:37 | XMS_ITS | Encounter Summary ---
Author Organization [facility] Facility Care Team Providers Care Funeral Service Manager Name Role Phone Lexy Reed MD Primary Care Provi thom Encounter Details Date Type Department Care Team (Latest Contact Info) Description 07/17/2017 Orders Only [facility] CLINCONV ProviderFlo MD [address] [place] [address] Social History Tobacco Use Types Packs/Day Years Used Date Smoking Tobacco: Never Comments Unknown Sex and Gender Information Value Date Recorded Sex Assigned at Not on file Legal Sex Female 1:48 AM PRIMARY CARE MD Gender Identity Not on file Sexual Orientation [...] on filedocumented in this encounter Care Teams Funeral Service Manager Relationship Specialty Start Date End Date Lexy Reed MD [address] [place] [address] PCP - General Family Medicine 04/04/18 documented as of this encounter
--- OUTSIDE RECORDS SUMMARY | 2025-03-02 16:37 | XMS_ITS | Encounter Summary ---
Author Organization [facility] Facility Care Team Providers Care Workers Compensation Administrator Name Role Phone Lexy Reed MD Primary Care Provi thom Encounter Details Date Type Department Care Team (Latest Contact Info) Description 02/26/2018 Orders Only [facility] CLINCONV ProviderFlo MD [address] [place] [address] Social History Tobacco Use Types Packs/Day Years Used Date Smoking Tobacco: Never Comments Unknown Sex and Gender Information Value Date Recorded Sex Assigned at Not on file Legal Sex Female 1:48 AM PATIENT CARE SPECIALIST Gender Identity Not on file Sexual Orientation Not on file documented as of this encounter Plan of Treatment Not on file documented as of this encounter Procedures Procedure Name Priority Date/Time Associated Diagnosis Comments SCAN - LABS 03/19/2018 12:00 AM PATIENT CARE SPECIALIST documented in this encounter Results * SCAN - LABS (03/19/2018 12:00 AM PATIENT CARE SPECIALIST) Narrative 03/19/2018 12:00 AM PATIENT CARE SPECIALIST Ordered by an unspecified provider. Historical Provider Final Res ult documented in this encounter Visit Diagnoses Not on filedocumented in this encounter Care Teams Workers Compensation Administrator Relationship Specialty Start Date End Date Lexy Reed MD [address] [place] [address] PCP - General Family Medicine 04/04/18 documented as of this encounter
--- OUTSIDE RECORDS SUMMARY | 2025-03-02 16:38 | XMS_ITS | Clinical Summary ---
Author Organization [facility] Address [facility] [place] [address] Care Team Providers Care Dryland Farmer Name Role Phone Cesia Randle NP Primary Care Provider +1 [phone] Allergies Active Allergy Reactions Criticality Noted Date [...] Overview: Added automatically from request for surgery [id number] Added automatically from request for surgery [id number] Last Assessment & Plan: Unable to have D+C Will follow up with STOCK MOVER tomorrow Update me after the visit Added automatically from request for surgery [id number] Last Assessment & Plan: She has follow up scheduled with STOCK MOVER PMB (postmenopausal bleeding) 04/16/2019 Overview (05/05/2019): Overview: Added automatically from request for surgery [id number] Last Assessment & Plan: Patient has also [...] Start Date Job End Date Retired from [employer] Not on file Not on file Not on file Last Filed Vital Signs Vital Sign Reading Time Taken Comments Blood Pressure 135/86 04/11/2022 3:43 PM SUPERVISOR FIBER LOCKING Pulse 77 04/11/2022 3:43 PM SUPERVISOR FIBER LOCKING Temperature 36.1 C (97 F) 04/11/2022 3:43 PM SUPERVISOR FIBER LOCKING Respiratory Rate 18 04/11/2022 3:43 PM SUPERVISOR FIBER LOCKING Oxygen Saturation 97% 04/11/2022 3:43 PM SUPERVISOR FIBER LOCKING Inhaled Oxygen Concentration - - Weight 71.7 kg (158 lb 1.6 oz) 04/11/2022 3:43 P M SUPERVISOR FIBER LOCKING Height 165.1 cm (5' 5) 04/11/2022 3:43 PM SUPERVISOR FIBER LOCKING Body Mass Index 26.31 04/11/2022 3:43 PM SUPERVISOR FIBER LOCKING Plan of Treatment Health Maintenance Due Date Last Done Comments DTaP, Tdap and Td Vaccines (1 - Tdap) 1971 Zoster Vaccines (1 of 2) 2002 Colorectal Cancer Screening Colonoscopy (10 Years) 10/14/2010 10/14/2000 Mammogram Screening 06/28/2023 06/27/2021, 05/14/2019, 07/04/2017, Additional history exists PHQ-2 (Physician [place]ink[place]) 04/29/2024 COVID-19 Vaccine ( season) 2024 Influenza Adult (#1) 2025 02/20/2021, 01/30/2019, 01/30/2018, Additional history exists Annual Medicare Wellness Visit 08/10/2025 Postponed from 2017 (Future Appointment) RSV Immunization or 60+ Years (1 - 1-dose 75+ series) 2027 Pneumococcal Vaccine: 50+ Years Completed 05/06/2018, 05/06/2017 Dexa Scan (General) Completed 03/28/2021, 03/28/2021, 04/06/2020, Additional history exists Hepatitis C Completed 09/15/2021 Hepatitis A Vaccines Aged Out No long er eligible based on patient's age to complete this topic Meningococcal B Vaccine Aged Out No l [...] hepatitis C screening test MG SCREENING W DELL LIAM DIGI Routine 06/27/2021 1:08 PM SUPERVISOR FIBER LOCKING Screening mammogram for breast cancer BONE DENSITY/DEXA Routine 03/28/2021 3:0 2 PM SUPERVISOR FIBER LOCKING Age-related osteoporosis without current pathological fracture COLONOSCOPY GENERIC (SCAN ORDER) 10/14/2000 from Last 3 Months or Most Recently Relevant to Health Maintenance Results * HEPATITIS C ANTIBODY (09/15/2021 7:07 PM CDT) HEPATITIS C AB NON-REACTI VE NON-REACT TANNER 09/15/2021 9:[address] [facility] Comment: ANTIBODIES TO HCV NOT DETECTED. DOES NOT EXCLUDE THE POSSIBILITY OF EXPOSURE TO HCV. 09/15/2021 7:07 PM CDT us Cesia Randle WELFARE MANAGER LABORATORY Final Res ult [facility] [address] [place] [address], [place] [phone] [id number] * MG SCREENING W DELL LIAM DIGI (06/27/2021 1:08 PM SUPERVISOR FIBER LOCKING) Anatomical Region Laterality Modality Breast Bilateral Mammography 06/27/2021 2:24 PM SUPERVISOR FIBER LOCKING Impressions 06/27/2021 2:25 PM SUPERVISOR FIBER LOCKING =====IMPRESSION:===== No mammographic findings suggestive of malignancy ASSESSMENT: ACR BI-RADS 2 - BENIGN FINDING(S) Recommendation: 1: Routine Screening Bilateral COMMENTS: Ordered By: CESIA RANDLE Interpreted By: Nick Srivastava MD, 06/27/2021 2:24 PM Narrative 06/27/2021 2:25 PM SUPERVISOR FIBER LOCKING EXAMINATION: Digital bilateral screening mammogram with 3-D [...] No significant change from the prior exam. us Cesia Randle WELFARE MANAGER MAMMO Final Res ult * BONE DENSITY/DEXA (03/28/2021 3:02 PM SUPERVISOR FIBER LOCKING) Anatomical Region Laterality Modality Bone Mammography 03/28/2021 3:07 PM SUPERVISOR FIBER LOCKING Impressions 03/28/2021 3:09 PM SUPERVISOR FIBER LOCKING Impression: BMD measured at AP lumbar spine and both femoral necks at WHO category level of osteopenia. BMD measured at both total hips at level of normal. BMD measured at AP lumbar spine and both total hips slightly increased since study 04/06/2020. Ordered By: BAKARI ROSENBERG Interpreted By: Ventura Moraes MD, 03/28/2021 3:07 PM Narrative 03/28/2021 3:09 PM SUPERVISOR FIBER LOCKING Examination: DEXA Bone densitometry EXAM DATE: 03/28/2021 [...] By: Ventura Moraes MD, 03/28/2021 3:07 PM us Bakari Rosenberg MD DEXA Final Result * COLONOSCOPY GENERIC (10/14/2000) 10/14/2000 [facility] Scanned SCANNING Final Resu lt from Last 3 Months or Most Recently Relevant to Health Maintenance Insurance MEDICARE [facility] [place] Care Teams Dryland Farmer Relationship Specialty Start Date End Date Cesia Randle NP [address] [place] [address] PCP - General NURSE PRACTITIONER 05/16/21
--- OUTSIDE RECORDS SUMMARY | 2025-03-02 16:38 | XMS_ITS | Encounter Summary ---
Author Organization [facility] Facility Care Team Providers Care Rfp Writer Name Role Phone Lexy Reed MD Primary Care Provi thom Encounter Details Date Type Department Care Team (Latest Contact Info) Description 03/15/2016 Orders Only [facility] CLINCONV ProviderFlo MD [address] [place] [address] Social History Tobacco Use Types Packs/Day Years Used Date Smoking Tobacco: Never Comments Unknown Sex and Gender Information Value Date Recorded Sex Assigned at Not on file Legal Sex Female 1:48 AM SEWING DEPARTMENT SUPERVISOR Gender Identity Not on file Sexual Orientation Not on file documented as of this encounter Plan of Treatment Not on file documented as of this encounter Procedures Procedure Name Priority Date/Time Associated Diagnosis Comments SCAN - LABS 03/15/2016 12:00 AM SEWING DEPARTMENT SUPERVISOR documented in this encounter Results * SCAN - LABS (03/15/2016 12:00 AM SEWING DEPARTMENT SUPERVISOR) Narrative 03/15/2016 12:00 AM SEWING DEPARTMENT SUPERVISOR Ordered by an unspecified provider. Historical Provider Final Res ult documented in this encounter Visit Diagnoses Not on filedocumented in this encounter Care Teams Rfp Writer Relationship Specialty Start Date End Date Lexy Reed MD [address] [place] [address] PCP - General Family Medicine 04/04/18 documented as of this encounter
--- OUTSIDE RECORDS SUMMARY | 2025-03-02 16:38 | XMS_ITS | Encounter Summary ---
Author Organization [facility] Facility Care Team Providers Care Lease Out Worker Name Role Phone Lexy Reed MD Primary Care Provi thom Encounter Details Date Type Department Care Team (Latest Contact Info) Description 05/08/2012 Orders Only [facility]G CLINCONV ProviderFlo MD [address] [place] [address] Social History Tobacco Use Types Packs/Day Years Used Date Smoking Tobacco: Never Assessed Comments Unknown Sex and Gender Information Value Date Recorded Sex Assigned at Not on file Legal Sex Female 1:48 AM TECHNICAL ACCOUNT REPRESENTATIVE Gender Identity Not on file Sexual Orientation Not on file documented as of this encounter Plan of Treatment Not on file documented as of this encounter Procedures Procedure Name Priority Date/Time Associated Diagnosis Comments COLONOSCOPY - SCAN 05/08/2012 12 :00 AM TECHNICAL ACCOUNT REPRESENTATIVE documented in this encounter Results * COLONOSCOPY - SCAN (05/08/2012 12:00 AM TECHNICAL ACCOUNT REPRESENTATIVE) Narrative 05/08/2012 12:00 AM TECHNICAL ACCOUNT REPRESENTATIVE Ordered by an unspecified provider. Historical Provider Final Res ult documented in this encounter Visit Diagnoses Not on filedocumented in this encounter Care Teams Lease Out Worker Relationship Specialty Start Date End Date Lexy Reed MD [address] [place] [address] PCP - General Family Medicine 04/04/18 documented as of this encounter
--- OUTSIDE RECORDS SUMMARY | 2025-03-02 16:38 | XMS_ITS | Encounter Summary ---
Author Organization [facility] Address [address] [place] [address] Care Team Providers Care Plate Maker Zinc Name Role Phone Lexy Reed MD Primary Care Provider Cesia Randle NP Primary Care Provider [phone] [phone] Encounter Details Date Type Department Care Team (Late st Contact Info) Description 04/27/2021 Therapy Plan [facility] Medical Group Diabetes and Endocrinology - [address] [address] [place] [address] [place] [address] Social History Tobacco Use Types Packs/Day Years [...] Start Date Job End Date Retired from [employer] Not on file Not on file Not on file COVID-19 Exposure Response Date Recorded In the last month, have you been in contact with someone who was confirmed or suspected to have Coronavirus / COVID-19? No / Unsure 04/27/2021 10:43 AM MEDICAL RECORD LIBRARIANS TEACHER documented as of this encounter Plan of Treatment Not on file documented as of this encounter Visit Diagnoses Not on filedocumented in this encounter Additional Health Concerns Assessment Noted Time PHQ-9 Depression Total Score: 0 04/27/20 10:53 AM MEDICAL RECORD LIBRARIANS TEACHER documented as of this encounter Care Teams Plate Maker Zinc Relationship Specialty Start Date End Date Lexy Reed MD [address] [place] [address] PCP - General FAMILY PRACTICE 02/05/18 05/15/21 Cesia Randle NP [address] [place] [address] PCP - General NURSE PRACTITIONER 05/16/21 documented as of this encounter
--- OUTSIDE RECORDS SUMMARY | 2025-03-02 16:38 | XMS_ITS | Clinical Summary ---
Author Organization [facility] Address [address] [place] [id number] Care Team Providers Care Driller'S Offsider Name Role Phone Lexy Reed MD Primary Care Provi thom Allergies Active Allergy Reactions Criticality Noted Date Comments Clemastine-Phenylprop Rash Medium 07/31/2018 Skin test at accordion repairer occurred in 2011 Penicillins Rash Medium 11/01/2016 [...] 05/09/2021 Assessment & Plan (05/09/2021 1:19 PM CAR UNLOADER HELPER): Continue to work on a low carb diet Cervical stenosis (uterine cervix) 04/16/2019 Overview (04/16/2019): Added automatically from request for surgery [id number] Assessment & Plan (05/09/2021 1:12 PM CAR UNLOADER HELPER): She has follow up scheduled with COURT COMMISSIONER Assessment & Plan (05/26/2019 3:21 PM CAR UNLOADER HELPER): Unable to have D+C Will follow up with COURT COMMISSIONER tomorrow Update me after the visit Encounter [...] encouraged Assessment & Plan (05/09/2021 1:13 PM CAR UNLOADER HELPER): Encouraged healthy changes Encouraged to look into a POA, living will Health Maintenance: Last mammogram: ordered Last DEXA: following with a specialist Last colonoscopy: 05/08/12, repeat in 10 years Last Tdap: uncertain Last pneumonia/Prevnar: up to date Last Shingrix:encouraged Last Flu: up to date Last COVID: encouraged Assessment & Plan (03/20/2019 10:48 AM CAR UNLOADER HELPER): Work on healthy low carb diet Healthy [...] counseling. Assessment & Plan (05/09/2021 1:17 PM CAR UNLOADER HELPER): BMI Follow-up includes: nutrition counseling. Microhematuria 10/08/2018 Assessment & Plan (05/09/2021 1:15 PM CAR UNLOADER HELPER): Will recheck at next visit Assessment & Plan (03/20/2019 10:53 AM CAR UNLOADER HELPER): Lab ordered She does follow with urology Sacroiliitis 07/07/2018 Assessment & Plan (05/09/2021 1:18 PM CAR UNLOADER HELPER): Continue supportive care Lumbar radiculopathy 06/27/2018 Assessment & Plan (05/09/2021 1:15 PM CAR UNLOADER HELPER): Stable Continue supportive care Assessment & Plan (03/20/2019 10:53 AM CAR UNLOADER HELPER): Has done PT and seen pain management Continue supportive care Call if symptoms change or worsen Urge incontinence of urine 06/20/2018 Assessment & Plan (05/09/2021 1:18 PM CAR UNLOADER HELPER): Not on medication Continue to monitor Assessment & Plan (03/20/2019 10:55 AM CAR UNLOADER HELPER): improved Sciatica, right side 02/14/2018 Assessment & Plan (05/09/2021 1:18 PM CAR UNLOADER HELPER): Continue supportive care Pure hypercholesterolemia 08/01/2017 Overview (03/31/2019): CVD 4.2 % Assessment & Plan (05/09/2021 1:18 PM CAR UNLOADER HELPER): CVD score 7.1% We discussed the pros/cons She is going to work on healthy changes Assessment & Plan (06/09/2019 10:10 AM CAR UNLOADER HELPER): CVD 5.3% We discussed medication-she is not interested in medication If it continues to improve, she does not need medication Update me with any changes Call for questions or concerns Assessment & Plan (03/31/2019 2:01 PM CAR UNLOADER HELPER): CVD score 4.2% Continue working on healthy changes Recheck in 6-12 months Update me with any changes Call for questions or concerns Assessment & Plan (03/20/2019 10:54 AM CAR UNLOADER HELPER): Labs ordered Continue healthy changes Gastroesophageal reflux disease without esophagi tis 07/17/2017 Assessment & Plan (05/09/2021 1:14 PM CAR UNLOADER HELPER): Stable Continue nexium Reviewed the risks/benefits Assessment & Plan (03/20/2019 10:52 AM CAR UNLOADER HELPER): Reviewed risks of nexium including c diff and pneumonia Monitor symptoms, does want to continue it Call for questions or concerns Osteoporosis without current pathological fractu re 07/09/2017 Assessment & Plan (05/09/2021 1:16 PM CAR UNLOADER HELPER): Continue to follow with her specialist Update me with any changes Assessment & Plan (03/20/2019 10:54 AM CAR UNLOADER HELPER): Bone density scheduled Continue calcium and vitamin d Assessment & Plan (09/30/2018 4:08 PM CDT): calcium supplementation of 5257-5424 mg daily- over 1500 mg can be detrimental vitamin d of 2139-1574 units daily can increase bone mass limit [...] 11/04/2016 Assessment & Plan (05/09/2021 1:07 PM CAR UNLOADER HELPER): Last TSH was normal Assessment & Plan (03/20/2019 10:50 AM CAR UNLOADER HELPER): Lab ordered DDD (degenerative disc disease), cervical 2016 Assessment & Plan (05/09/2021 1:12 PM CAR UNLOADER HELPER): Improved Continue supportive care Atrophic vaginitis 03/25/2012 Assessment & Plan (05/09/2021 1:11 PM CAR UNLOADER HELPER): Off medication currently Assessment & Plan (03/20/2019 10:51 AM CAR UNLOADER HELPER): Not on treatment currently Resolved Problems Problem Noted Date Diagnosed Date Resolved Date PMB (postmenopausal bleeding) 04/16/2019 05/09/2021 Overview (04/16/2019): Added automatically from request for surgery [id number] Assessment & Plan (04/17/2019 5:50 PM CAR UNLOADER HELPER): Patient has also seeing Gyne on could [...] 05/09/2021 Assessment & Plan (03/20/2019 10:56 AM CAR UNLOADER HELPER): BMI Follow-up includes: nutrition counseling. Cough 10/28/2018 [...] arm Assessment & Plan (05/09/2021 1:15 PM CAR UNLOADER HELPER): resolved Dysphagia 11/01/2016 05/09/2021 Encounter for general [...] encouraged Assessment & Plan (05/09/2021 1:07 PM CAR UNLOADER HELPER): Encouraged healthy changes Encouraged to look into [...] on file Legal Sex Female 1:48 AM CAR UNLOADER HELPER Gender Identity Not on file Sexual Orientation Not on file Last Filed Vital Signs Vital Sign Reading Time Taken Comments Blood Pressure 124/80 09/04/2021 2:33 PM CDT Pulse 72 05/09/2021 12:55 PM CAR UNLOADER HELPER Temperature 36.3 C (97.3 F) 05/09/2021 12:55 PM CAR UNLOADER HELPER Respiratory Rate 12 05/09/2021 12:55 PM CAR UNLOADER HELPER Oxygen Saturation 98% 05/09/2021 12:55 PM CAR UNLOADER HELPER Inhaled Oxygen Concentration - - Weight 68.5 kg (151 lb) 09/04/2021 2:33 PM CDT Height 165.1 cm (5' 5) 05/09/2021 12:55 PM CAR UNLOADER HELPER Body Mass Index 25.13 05/09/2021 12:55 PM CAR UNLOADER HELPER Plan of Treatment Not on file Insurance MEDICARE [facility] ACCESS FOR LIFE MEDICARE FOR LIFE [facility]LY [facility]1983 MEDICARE [facility] Care Teams Driller'S Offsider Relationship Specialty Start Date End Date Lexy Reed MD [address] [place] [address] PCP - General Family Medicine 04/04/18
--- OUTSIDE RECORDS SUMMARY | 2025-03-02 16:38 | XMS_ITS | Encounter Summary ---
Author Organization [facility] Address [address] [place] [address] Care Team Providers Care Resume Writer Name Role Phone Cesia Randle NP Primary Care Provider +1 [phone] Encounter Details Date Type Department Care Team (Late st Contact Info) Description 12/28/2021 [employer] Message Enc [facility] Medical Group Family Medicine - [place] [address] [facility] [address] [place] [address] Cesia Randle, ARABELLA [address] [place] [address] Bp misreading at. My Dr visit today [...] Start Date Job End Date Retired from [employer] Not on file Not on file [...] Depression Total Score: 0 06/28/19 3:24 PM SUPERINTENDENT AUTOMOTIVE documented as of this encounter Care Teams Resume Writer Relationship Specialty Start Date End Date Cesia Randle NP [address] [place] [address] PCP - General NURSE PRACTITIONER 05/16/21 documented as of this encounter
--- OUTSIDE RECORDS SUMMARY | 2025-03-02 16:38 | XMS_ITS | Encounter Summary ---
Author Organization [facility] Facility Care Team Providers Care Preparatory Technician Name Role Phone Lexy Reed MD Primary Care Provi thom Encounter Details Date Type Department Care Team (Latest Contact Info) Description 06/20/2018 Orders Only MMG CLINCONV ProviderFlo MD [address] [place] [address] Social History Tobacco Use Types Packs/Day Years Used Date Smoking Tobacco: Never Comments Unknown Sex and Gender Information Value Date Recorded Sex Assigned at Not on file Legal Sex Female 1:48 AM CARTON LINER Gender Identity Not on file Sexual Orientation Not on file documented as of this encounter Plan of Treatment Not on file documented as of this encounter Procedures Procedure Name Priority Date/Time Associated Diagnosis Comments CARDIOLOGY REPORT 06/25/2018 12: 00 AM CARTON LINER documented in this encounter Results * CARDIOLOGY REPORT (06/25/2018 12:00 AM CARTON LINER) Anatomical Region Laterality Modality Other Narrative 06/25/2018 12:00 AM CARTON LINER Ordered by an unspecified provider. Historical Provider [facility] CARMEN HAGER Final Result documented in this encounter Visit Diagnoses Not on filedocumented in this encounter Care Teams Preparatory Technician Relationship Specialty Start Date End Date Lexy Reed MD [address] [place] [address] PCP - General Family Medicine 04/04/18 documented as of this encounter
--- OUTSIDE RECORDS SUMMARY | 2025-03-02 16:38 | XMS_ITS | Encounter Summary ---
Author Organization [facility] Address [address] [place] [address] Care Team Providers Care Engineer Assistant Name Role Phone Cesia aRndle NP Primary Care Provider +1 [phone] Encounter Details Date Type Department Care Team (Late st Contact Info) Description 01/11/2022 [employer] Message Enc [facility] Medical Group Family Medicine - [place] [address] [address] Cesia Randle, ARABELLA [address] [place] [address] Amoxicillin Social History Tobacco Use Types Packs/Day [...] Start Date Job End Date Retired from [employer] Not on file Not on file [...] Depression Total Score: 0 06/28/19 3:24 PM AERODYNAMIC CONSULTANT documented as of this encounter Care Teams Engineer Assistant Relationship Specialty Start Date End Date Cesia Randle NP [address] [place] [address] PCP - General NURSE PRACTITIONER 05/16/21 documented as of this encounter
--- OUTSIDE RECORDS SUMMARY | 2025-03-02 16:38 | XMS_ITS | Encounter Summary ---
Author Organization [facility] Address [address] [place] [address] Care Team Providers Care Grapple Yarder Operator Name Role Phone Cesia Randle NP Primary Care Provider +1 [phone] Encounter Details Date Type Department Care Team (Late st Contact Info) Description 12/28/2021 [employer] Message Enc [facility] Medical Group Family Medicine - [place] [address] [facility] [address] [place] [address] Cesia Randle, ARABELLA [address] [place] [address] Bp reading you took today, is not [...] Start Date Job End Date Retired from [employer] Not on file Not on file [...] Depression Total Score: 0 06/28/19 3:24 PM EDITOR documented as of this encounter Care Teams Grapple Yarder Operator Relationship Specialty Start Date End Date Cesia Randle NP [address] [place] [address] PCP - General NURSE PRACTITIONER 05/16/21 documented as of this encounter
== END 2025-03-02 15:17 | disposition home or self-care (01) ==
PROVIDERS: PCP Internal Medicine
DX: N20.0 Calculus of kidney (principal)
CPT/HCPCS: 74176

== ENCOUNTER 2025-03-03 15:21 | Outpatient (CLI) | payer MEDICARE, BC, OTHER, SELFPAY ==
[2025-03-03 16:51] LABS: Add Urine Microscopic? YES; Appearance Urine Clear (Clear); Glucose Urine UA Negative (Negative); Leukocyte Esterase Ur 1+ LEU/UL (Negative); Nitrate Urine Negative (Negative); Non Pathogenic Casts 0-2; Specific Grav Ur 1.011 (1.001-1.035)
--- OUTSIDE RECORDS SUMMARY | 2025-03-04 14:54 | XMS_ITS | Encounter Summary ---
Author Organization [facility] Facility Care Team Providers Care University Partnership Rep Name Role Phone Lexy Reed MD Primary Care Provi thom Encounter Details Date Type Department Care Team (Latest Contact Info) Description 07/17/2017 Orders Only MMG CLINCONV ProviderFlo MD [address] [place] [address] Social History Tobacco Use Types Packs/Day Years Used Date Smoking Tobacco: Never Comments Unknown Sex and Gender Information Value Date Recorded Sex Assigned at Not on file Legal Sex Female 1:48 AM STOCK BROKER SUPERVISOR Gender Identity Not on file Sexual Orientation Not on file documented as of this encounter Functional Status documented as of this encounter Plan of [...] on filedocumented in this encounter Care Teams University Partnership Rep Relationship Specialty Start Date End Date Lexy Reed MD [address] [place] [address] PCP - General Family Medicine 04/04/18 documented as of this encounter
--- OUTSIDE RECORDS SUMMARY | 2025-03-04 14:54 | XMS_ITS | Encounter Summary ---
Author Organization [facility] Facility Care Team Providers Care It Trainer Name Role Phone Lexy Reed MD Primary Care Provi thom Encounter Details Date Type Department Care Team (Latest Contact Info) Description 02/26/2018 Orders Only MMG CLINCONV ProviderFlo MD [address] [place] [address] Social History Tobacco Use Types Packs/Day Years Used Date Smoking Tobacco: Never Comments Unknown Sex and Gender Information Value Date Recorded Sex Assigned at Not on file Legal Sex Female 1:48 AM MANAGER BOOK Gender Identity Not on file Sexual Orientation Not on file documented as of this encounter Plan of Treatment Not on file documented as of this encounter Procedures Procedure Name Priority Date/Time Associated Diagnosis Comments SCAN - LABS 03/19/2018 12:00 AM MANAGER BOOK documented in this encounter Results * SCAN - LABS (03/19/2018 12:00 AM MANAGER BOOK) Narrative 03/19/2018 12:00 AM MANAGER BOOK Ordered by an unspecified provider. Historical Provider Final Res ult documented in this encounter Visit Diagnoses Not on filedocumented in this encounter Care Teams It Trainer Relationship Specialty Start Date End Date Lexy Reed MD [address] [place] [address] PCP - General Family Medicine 04/04/18 documented as of this encounter
--- OUTSIDE RECORDS SUMMARY | 2025-03-04 14:55 | XMS_ITS | Encounter Summary ---
Author Organization [facility] Facility Care Team Providers Care Contour Path Tape Mill Operator Name Role Phone Lexy Reed MD Primary Care Provi thom Encounter Details Date Type Department Care Team (Latest Contact Info) Description 05/08/2012 Orders Only MMG CLINCONV ProviderFlo MD [address] [place] [address] Social History Tobacco Use Types Packs/Day Years Used Date Smoking Tobacco: Never Assessed Comments Unknown Sex and Gender Information Value Date Recorded Sex Assigned at Not on file Legal Sex Female 1:48 AM RN MATERNAL CHILD Gender Identity Not on file Sexual Orientation Not on file documented as of this encounter Plan of Treatment Not on file documented as of this encounter Procedures Procedure Name Priority Date/Time Associated Diagnosis Comments COLONOSCOPY - SCAN 05/08/2012 12 :00 AM RN MATERNAL CHILD documented in this encounter Results * COLONOSCOPY - SCAN (05/08/2012 12:00 AM RN MATERNAL CHILD) Narrative 05/08/2012 12:00 AM RN MATERNAL CHILD Ordered by an unspecified provider. Historical Provider Final Res ult documented in this encounter Visit Diagnoses Not on filedocumented in this encounter Care Teams Contour Path Tape Mill Operator Relationship Specialty Start Date End Date Lexy Reed MD [address] [place] [address] PCP - General Family Medicine 04/04/18 documented as of this encounter
--- OUTSIDE RECORDS SUMMARY | 2025-03-04 14:55 | XMS_ITS | Encounter Summary ---
Author Organization [facility] Address [address] [place] [address] Care Team Providers Care Striper Spray Gun Name Role Phone Cesia Randle NP Primary Care Provider +1 [phone] Encounter Details Date Type Department Care Team (Late st Contact Info) Description 01/11/2022 The Dodo Message Enc [facility] Medical Group Family Medicine - [place] [address] [address] Cesia Randle, ARABELAL [address] [place] [address] Amoxicillin Social History Tobacco Use Types Packs/Day [...] Start Date Job End Date Retired from [employer] Not on file Not on file [...] Depression Total Score: 0 06/28/19 3:24 PM SUPPORT SERVICES REP documented as of this encounter Care Teams Striper Spray Gun Relationship Specialty Start Date End Date Cesia Randle NP [address] [place] [address] PCP - General NURSE PRACTITIONER 05/16/21 documented as of this encounter
--- OUTSIDE RECORDS SUMMARY | 2025-03-04 14:55 | XMS_ITS | Encounter Summary ---
Author Organization [facility] Address [address] [place] [address] Care Team Providers Care Reinforcing Rod Layer Name Role Phone Lexy Reed MD Primary Care Provider Cesia Randle NP Primary Care Provider +1 [phone] Encounter Details Date Type Department Care Team (Late st Contact Info) Description 04/27/2021 Therapy Plan [facility] Medical Group Diabetes and Endocrinology - [address] [address] [place] [address] [place] [address] Social History Tobacco Use Types Packs/Day Years [...] Start Date Job End Date Retired from [employer] Not on file Not on file Not on file COVID-19 Exposure Response Date Recorded In the last month, have you been in contact with someone who was confirmed or suspected to have Coronavirus / COVID-19? No / Unsure 04/27/2021 10:43 AM FUR IRONER documented as of this encounter Plan of Treatment Not on file documented as of this encounter Visit Diagnoses Not on filedocumented in this encounter Additional Health Concerns Assessment Noted Time PHQ-9 Depression Total Score: 0 04/27/20 10:53 AM FUR IRONER documented as of this encounter Care Teams Reinforcing Rod Layer Relationship Specialty Start Date End Date Lexy Reed MD [address] [place] [address] PCP - General FAMILY PRACTICE 02/05/18 05/15/21 Cesia Randle NP [address] [place] [address] PCP - General NURSE PRACTITIONER 05/16/21 documented as of this encounter
--- OUTSIDE RECORDS SUMMARY | 2025-03-04 14:55 | XMS_ITS | Clinical Summary ---
Author Organization [facility] Address [address] [place] [address] Care Team Providers Care Industrial Retrofit Designer Name Role Phone Cesia Randle NP Primary Care Provider +1 [phone] Allergies Active Allergy Reactions Criticality Noted Date [...] Overview: Added automatically from request for surgery [id number] Added automatically from request for surgery [id number] Last Assessment & Plan: Unable to have D+C Will follow up with CALL CENTER CONSULTANT tomorrow Update me after the visit Added automatically from request for surgery [id number] Last Assessment & Plan: She has follow up scheduled with CALL CENTER CONSULTANT PMB (postmenopausal bleeding) 04/16/2019 Overview (05/05/2019): Overview: Added automatically from request for surgery [id number] Last Assessment & Plan: Patient has also [...] Start Date Job End Date Retired from [employer] Not on file Not on file Not on file Last Filed Vital Signs Vital Sign Reading Time Taken Comments Blood Pressure 135/86 04/11/2022 3:43 PM OIL FIELD EQUIPMENT MECHANIC SUPERVISOR Pulse 77 04/11/2022 3:43 PM OIL FIELD EQUIPMENT MECHANIC SUPERVISOR Temperature 36.1 C (97 F) 04/11/2022 3:43 PM OIL FIELD EQUIPMENT MECHANIC SUPERVISOR Respiratory Rate 18 04/11/2022 3:43 PM OIL FIELD EQUIPMENT MECHANIC SUPERVISOR Oxygen Saturation 97% 04/11/2022 3:43 PM OIL FIELD EQUIPMENT MECHANIC SUPERVISOR Inhaled Oxygen Concentration - - Weight 71.7 kg (158 lb 1.6 oz) 04/11/2022 3:43 P M OIL FIELD EQUIPMENT MECHANIC SUPERVISOR Height 165.1 cm (5' 5) 04/11/2022 3:43 PM OIL FIELD EQUIPMENT MECHANIC SUPERVISOR Body Mass Index 26.31 04/11/2022 3:43 PM OIL FIELD EQUIPMENT MECHANIC SUPERVISOR Plan of Treatment Health Maintenance Due Date Last Done Comments DTaP, Tdap and Td Vaccines (1 - Tdap) 1971 Zoster Vaccines (1 of 2) 2002 Colorectal Cancer Screening Colonoscopy (10 Years) 10/14/2010 10/14/2000 Mammogram Screening 06/28/2023 06/27/2021, 05/14/2019, 07/04/2017, Additional history exists PHQ-2 (Physician Success) 04/29/2024 COVID-19 Vaccine ( season) 2024 Influenza [...] DELL LIAM DIGI Routine 06/27/2021 1:08 PM OIL FIELD EQUIPMENT MECHANIC SUPERVISOR Screening mammogram for breast cancer BONE DENSITY/DEXA Routine 03/28/2021 3:0 2 PM OIL FIELD EQUIPMENT MECHANIC SUPERVISOR Age-related osteoporosis without current pathological fracture COLONOSCOPY GENERIC (SCAN ORDER) 10/14/2000 from Last 3 Months or Most Recently Relevant to Health Maintenance Results * HEPATITIS C ANTIBODY (09/15/2021 7:07 PM CDT) HEPATITIS C AB NON-REACTI VE NON-REACT TANNER 09/15/2021 9:41 PM CDT [facility] Comment: ANTIBODIES TO HCV NOT DETECTED. DOES NOT EXCLUDE THE POSSIBILITY OF EXPOSURE TO HCV. 09/15/2021 7:07 PM CDT us Cesia Randle EMERGENCY MEDICINE LABORATORY Final Res ult [facility] [address] [place] [address], [place] [phone] [id number] * MG SCREENING W DELL LIAM DIGI (06/27/2021 1:08 PM OIL FIELD EQUIPMENT MECHANIC SUPERVISOR) Anatomical Region Laterality Modality Breast Bilateral Mammography 06/27/2021 2:24 PM OIL FIELD EQUIPMENT MECHANIC SUPERVISOR Impressions 06/27/2021 2:25 PM OIL FIELD EQUIPMENT MECHANIC SUPERVISOR =====IMPRESSION:===== No mammographic findings suggestive of malignancy ASSESSMENT: ACR BI-RADS 2 - BENIGN FINDING(S) Recommendation: 1: Routine Screening Bilateral COMMENTS: Ordered By: CESIA RANDLE Interpreted By: Nick Srivastava MD, 06/27/2021 2:24 PM Narrative 06/27/2021 2:25 PM OIL FIELD EQUIPMENT MECHANIC SUPERVISOR EXAMINATION: Digital bilateral screening mammogram with 3-D [...] from the prior exam. us Cesia Randle EMERGENCY MEDICINE MAMMO Final Res ult * BONE DENSITY/DEXA (03/28/2021 3:02 PM OIL FIELD EQUIPMENT MECHANIC SUPERVISOR) Anatomical Region Laterality Modality Bone Mammography 03/28/2021 3:07 PM OIL FIELD EQUIPMENT MECHANIC SUPERVISOR Impressions 03/28/2021 3:09 PM OIL FIELD EQUIPMENT MECHANIC SUPERVISOR Impression: BMD measured at AP lumbar spine and both femoral necks at WHO category level of osteopenia. BMD measured at both total hips at level of normal. BMD measured at AP lumbar spine and both total hips slightly increased since study 04/06/2020. Ordered By: BAKARI ROSENBERG Interpreted By: Ventura Moraes MD, 03/28/2021 3:07 PM Narrative 03/28/2021 3:09 PM OIL FIELD EQUIPMENT MECHANIC SUPERVISOR Examination: DEXA Bone densitometry EXAM DATE: 03/28/2021 [...] Recently Relevant to Health Maintenance Insurance MEDICARE [facility] HUMAN So Protect Me Care Teams Industrial Retrofit Designer Relationship Specialty Start Date End Date Cesia Randle NP [address] [place] [address] PCP - General NURSE PRACTITIONER 05/16/21
--- OUTSIDE RECORDS SUMMARY | 2025-03-04 14:55 | XMS_ITS | Encounter Summary ---
Author Organization [facility] Facility Care Team Providers Care Ski Patrol Officer Name Role Phone Lexy Reed MD Primary Care Provi thom Encounter Details Date Type Department Care Team (Latest Contact Info) Description 06/20/2018 Orders Only MMG CLINCONV Provider, MD Flo [address] [place] [address] Social History Tobacco Use Types Packs/Day Years Used Date Smoking Tobacco: Never Comments Unknown Sex and Gender Information Value Date Recorded Sex Assigned at Not on file Legal Sex Female 1:48 AM ROOF DESIGNER Gender Identity Not on file Sexual Orientation Not on file documented as of this encounter Functional Status documented as of this encounter Plan of Treatment Not on file documented as of this encounter Procedures Procedure Name Priority Date/Time Associated Diagnosis Comments CARDIOLOGY REPORT 06/25/2018 12: 00 AM ROOF DESIGNER documented in this encounter Results * CARDIOLOGY REPORT (06/25/2018 12:00 AM ROOF DESIGNER) Anatomical Region Laterality Modality Other Narrative 06/25/2018 12:00 AM ROOF DESIGNER Ordered by an unspecified provider. Historical Provider [facility] CARMEN HAGER Final Result documented in this encounter Visit Diagnoses Not on filedocumented in this encounter Care Teams Ski Patrol Officer Relationship Specialty Start Date End Date Lexy Reed MD [address] [place] [address] PCP - General Family Medicine 04/04/18 documented as of this encounter
--- OUTSIDE RECORDS SUMMARY | 2025-03-04 14:55 | XMS_ITS | Encounter Summary ---
Author Organization [facility] Facility Care Team Providers Care Furnace Filler Name Role Phone Lexy Reed MD Primary Care Provi thom Encounter Details Date Type Department Care Team (Latest Contact Info) Description 03/15/2016 Orders Only MMG CLINCONV ProviderFlo MD [address] [place] [address] Social History Tobacco Use Types Packs/Day Years Used Date Smoking Tobacco: Never Comments Unknown Sex and Gender Information Value Date Recorded Sex Assigned at Not on file Legal Sex Female 1:48 AM ACID MIXER Gender Identity Not on file Sexual Orientation Not on file documented as of this encounter Plan of Treatment Not on file documented as of this encounter Procedures Procedure Name Priority Date/Time Associated Diagnosis Comments SCAN - LABS 03/15/2016 12:00 AM ACID MIXER documented in this encounter Results * SCAN - LABS (03/15/2016 12:00 AM ACID MIXER) Narrative 03/15/2016 12:00 AM ACID MIXER Ordered by an unspecified provider. Historical Provider Final Res ult documented in this encounter Visit Diagnoses Not on filedocumented in this encounter Care Teams Furnace Filler Relationship Specialty Start Date End Date Lexy Reed MD [address] [place] [address] PCP - General Family Medicine 04/04/18 documented as of this encounter
--- OUTSIDE RECORDS SUMMARY | 2025-03-04 14:55 | XMS_ITS | Encounter Summary ---
Author Organization [facility] Address [address] [place] [address] Care Team Providers Care Tile Grader Name Role Phone Cesia Randle NP Primary Care Provider +1 [phone] Encounter Details Date Type Department Care Team (Late st Contact Info) Description 12/28/2021 [employer] Mobile Message Enc [facility] Medical Group Family Medicine - [place] [address] [facility] [address] [place] [address] Cesia Randle, ARABELLA [address] [place] [address] Bp reading you took today, is not [...] Start Date Job End Date Retired from [employer] Not on file Not on file [...] Depression Total Score: 0 06/28/19 3:24 PM CONTACT AGENT documented as of this encounter Care Teams Tile Grader Relationship Specialty Start Date End Date Cesia Randle NP [address] [place] [address] [place] [address] PCP - General NURSE PRACTITIONER 05/16/21 documented as of this encounter
--- OUTSIDE RECORDS SUMMARY | 2025-03-04 14:55 | XMS_ITS | Encounter Summary ---
Author Organization [facility] Address [address] [place] [address] Care Team Providers Care Deputy Juvenile Officer Name Role Phone Cesia Randle NP Primary Care Provider +1 [phone] Encounter Details Date Type Department Care Team (Late st Contact Info) Description 12/28/2021 [employer] Message Enc [facility] Medical Group Family Medicine - [place] [address] [facility] [address] [place] [address] Cesia Randle, ARABELLA [address] [place] [address] Bp misreading at. My Dr visit today [...] Start Date Job End Date Retired from [employer] Not on file Not on file [...] Depression Total Score: 0 06/28/19 3:24 PM HEAD OF PRODUCT documented as of this encounter Care Teams Deputy Juvenile Officer Relationship Specialty Start Date End Date Cesia Randle NP [address] [place] [address] PCP - General NURSE PRACTITIONER 05/16/21 documented as of this encounter
--- OUTSIDE RECORDS SUMMARY | 2025-03-04 14:55 | XMS_ITS | Clinical Summary ---
Author Organization [facility] Address [address] [place] [address] Care Team Providers Care Fisher Eel Name Role Phone Lexy Reed MD Primary Care Provi thom Allergies Active Allergy Reactions Criticality Noted Date Comments Clemastine-Phenylprop Rash Medium 07/31/2018 Skin test at strategy specialist occurred in 2011 Penicillins Rash Medium 11/01/2016 [...] 05/09/2021 Assessment & Plan (05/09/2021 1:19 PM UKE OPERATOR): Continue to work on a low carb diet Cervical stenosis (uterine cervix) 04/16/2019 Overview (04/16/2019): Added automatically from request for surgery [id number] Assessment & Plan (05/09/2021 1:12 PM UKE OPERATOR): She has follow up scheduled with SUPERVISOR PIPE FINISHING Assessment & Plan (05/26/2019 3:21 PM UKE OPERATOR): Unable to have D+C Will follow up with SUPERVISOR PIPE FINISHING tomorrow Update me after the visit Encounter [...] encouraged Assessment & Plan (05/09/2021 1:13 PM UKE OPERATOR): Encouraged healthy changes Encouraged to look into a POA, living will Health Maintenance: Last mammogram: ordered Last DEXA: following with a specialist Last colonoscopy: 05/08/12, repeat in 10 years Last Tdap: uncertain Last pneumonia/Prevnar: up to date Last Shingrix:encouraged Last Flu: up to date Last COVID: encouraged Assessment & Plan (03/20/2019 10:48 AM UKE OPERATOR): Work on healthy low carb diet Healthy [...] counseling. Assessment & Plan (05/09/2021 1:17 PM UKE OPERATOR): BMI Follow-up includes: nutrition counseling. Microhematuria 10/08/2018 Assessment & Plan (05/09/2021 1:15 PM UKE OPERATOR): Will recheck at next visit Assessment & Plan (03/20/2019 10:53 AM UKE OPERATOR): Lab ordered She does follow with urology Sacroiliitis 07/07/2018 Assessment & Plan (05/09/2021 1:18 PM UKE OPERATOR): Continue supportive care Lumbar radiculopathy 06/27/2018 Assessment & Plan (05/09/2021 1:15 PM UKE OPERATOR): Stable Continue supportive care Assessment & Plan (03/20/2019 10:53 AM UKE OPERATOR): Has done PT and seen pain management Continue supportive care Call if symptoms change or worsen Urge incontinence of urine 06/20/2018 Assessment & Plan (05/09/2021 1:18 PM UKE OPERATOR): Not on medication Continue to monitor Assessment & Plan (03/20/2019 10:55 AM UKE OPERATOR): improved Sciatica, right side 02/14/2018 Assessment & Plan (05/09/2021 1:18 PM UKE OPERATOR): Continue supportive care Pure hypercholesterolemia 08/01/2017 Overview (03/31/2019): CVD 4.2 % Assessment & Plan (05/09/2021 1:18 PM UKE OPERATOR): CVD score 7.1% We discussed the pros/cons She is going to work on healthy changes Assessment & Plan (06/09/2019 10:10 AM UKE OPERATOR): CVD 5.3% We discussed medication-she is not interested in medication If it continues to improve, she does not need medication Update me with any changes Call for questions or concerns Assessment & Plan (03/31/2019 2:01 PM UKE OPERATOR): CVD score 4.2% Continue working on healthy changes Recheck in 6-12 months Update me with any changes Call for questions or concerns Assessment & Plan (03/20/2019 10:54 AM UKE OPERATOR): Labs ordered Continue healthy changes Gastroesophageal reflux disease without esophagi tis 07/17/2017 Assessment & Plan (05/09/2021 1:14 PM UKE OPERATOR): Stable Continue nexium Reviewed the risks/benefits Assessment & Plan (03/20/2019 10:52 AM UKE OPERATOR): Reviewed risks of nexium including c diff and pneumonia Monitor symptoms, does want to continue it Call for questions or concerns Osteoporosis without current pathological fractu re 07/09/2017 Assessment & Plan (05/09/2021 1:16 PM UKE OPERATOR): Continue to follow with her specialist Update me with any changes Assessment & Plan (03/20/2019 10:54 AM UKE OPERATOR): Bone density scheduled Continue calcium and vitamin d Assessment & Plan (09/30/2018 4:08 PM CDT): calcium supplementation of 3784-3036 mg daily- over 1500 mg can be detrimental vitamin d of 7680-6834 units daily can increase bone mass limit [...] 11/04/2016 Assessment & Plan (05/09/2021 1:07 PM UKE OPERATOR): Last TSH was normal Assessment & Plan (03/20/2019 10:50 AM UKE OPERATOR): Lab ordered DDD (degenerative disc disease), cervical 2016 Assessment & Plan (05/09/2021 1:12 PM UKE OPERATOR): Improved Continue supportive care Atrophic vaginitis 03/25/2012 Assessment & Plan (05/09/2021 1:11 PM UKE OPERATOR): Off medication currently Assessment & Plan (03/20/2019 10:51 AM UKE OPERATOR): Not on treatment currently Resolved Problems Problem Noted Date Diagnosed Date Resolved Date PMB (postmenopausal bleeding) 04/16/2019 05/09/2021 Overview (04/16/2019): Added automatically from request for surgery [id number] Assessment & Plan (04/17/2019 5:50 PM UKE OPERATOR): Patient has also seeing Gyne on could [...] 05/09/2021 Assessment & Plan (03/20/2019 10:56 AM UKE OPERATOR): BMI Follow-up includes: nutrition counseling. Cough 10/28/2018 [...] arm Assessment & Plan (05/09/2021 1:15 PM UKE OPERATOR): resolved Dysphagia 11/01/2016 05/09/2021 Encounter for general [...] encouraged Assessment & Plan (05/09/2021 1:07 PM UKE OPERATOR): Encouraged healthy changes Encouraged to look into [...] on file Legal Sex Female 1:48 AM UKE OPERATOR Gender Identity Not on file Sexual Orientation Not on file Last Filed Vital Signs Vital Sign Reading Time Taken Comments Blood Pressure 124/80 09/04/2021 2:33 PM CDT Pulse 72 05/09/2021 12:55 PM UKE OPERATOR Temperature 36.3 C (97.3 F) 05/09/2021 12:55 PM UKE OPERATOR Respiratory Rate 12 05/09/2021 12:55 PM UKE OPERATOR Oxygen Saturation 98% 05/09/2021 12:55 PM UKE OPERATOR Inhaled Oxygen Concentration - - Weight 68.5 kg (151 lb) 09/04/2021 2:33 PM CDT Height 165.1 cm (5' 5) 05/09/2021 12:55 PM UKE OPERATOR Body Mass Index 25.13 05/09/2021 12:55 PM UKE OPERATOR Plan of Treatment Not on file Insurance MEDICARE [facility] ACCESS FOR LIFE MEDICARE FOR LIFE [facility] MEDICARE [facility] FOR LIFE Care Teams Fisher Eel Relationship Specialty Start Date End Date Lexy Reed MD [address] [place] [address] PCP - General Family Medicine 04/04/18
== END 2025-03-03 15:22 | disposition home or self-care (01) ==
PROVIDERS: PCP Internal Medicine
DX: R39.9 Unspecified symptoms and signs involving the genitourinary system (principal)
CPT/HCPCS: 81001; 87077; 87086; 87186

== ENCOUNTER 2025-04-19 15:18 | Outpatient (CLI) | payer MEDICARE, BC, OTHER, SELFPAY ==
--- OUTSIDE RECORDS SUMMARY | 2025-04-19 16:55 | XMS_ITS | Encounter Summary ---
Author Organization [facility] Address [address] [place] [address] Care Team Providers Care Alligator Shear Operator Name Role Phone Cesia Randle NP Primary Care Provider +1 [phone] Encounter Details Date Type Department Care Team (Late st Contact Info) Description 12/28/2021 [employer] Message Enc [facility] Medical Group Family Medicine - [place] [address] [facility] [address] [place] [address] Cesia Randle, ARABELLA [address] [place] [address] Bp misreading at. My Dr visit today [...] Start Date Job End Date Retired from [employer] Not on file Not on file [...] Depression Total Score: 0 06/28/19 3:24 PM FRUIT HARVEST MACHINE OPERATOR documented as of this encounter Care Teams Alligator Shear Operator Relationship Specialty Start Date End Date Cesia Randle NP [address] [place] [address] PCP - General NURSE PRACTITIONER 05/16/21 documented as of this encounter
--- OUTSIDE RECORDS SUMMARY | 2025-04-19 16:55 | XMS_ITS | Encounter Summary ---
Author Organization [facility] Address [address] [place] [address] Care Team Providers Care Digital Field Service Technician Name Role Phone Cesia Randle NP Primary Care Provider [phone] [phone] Encounter Details Date Type Department Care Team (Late st Contact Info) Description 01/11/2022 [employer] Message Enc [facility] Medical Group Family Medicine - [place] [address] [address] Cesia Randle, ARABELLA [address] [place] [address] Amoxicillin Social History Tobacco Use Types Packs/Day [...] Start Date Job End Date Retired from [employer] Not on file Not on file [...] Depression Total Score: 0 06/28/19 3:24 PM OPERATOR SUPPLY documented as of this encounter Care Teams Digital Field Service Technician Relationship Specialty Start Date End Date Cesia Randle NP [address] [place] [address] PCP - General NURSE PRACTITIONER 05/16/21 documented as of this encounter
--- OUTSIDE RECORDS SUMMARY | 2025-04-19 16:55 | XMS_ITS | Encounter Summary ---
Author Organization [facility] Facility Care Team Providers Care Bakery Decorator Name Role Phone Lexy Reed MD Primary Care Provi thom Encounter Details Date Type Department Care Team (Latest Contact Info) Description 07/17/2017 Orders Only [facility] CLINCONV ProviderFlo MD [address] [place] [address] Social History Tobacco Use Types Packs/Day Years Used Date Smoking Tobacco: Never Comments Unknown Sex and Gender Information Value Date Recorded Sex Assigned at Not on file Legal Sex Female 1:48 AM CAREER PORTALS TEACHER Gender Identity Not on file Sexual Orientation [...] on filedocumented in this encounter Care Teams Bakery Decorator Relationship Specialty Start Date End Date Lexy Reed MD [address] [place] [address] PCP - General Family Medicine 04/04/18 documented as of this encounter
--- OUTSIDE RECORDS SUMMARY | 2025-04-19 16:55 | XMS_ITS | Encounter Summary ---
Author Organization [facility] Facility Care Team Providers Care Polisher Sand Name Role Phone Lexy Reed MD Primary Care Provi thom Encounter Details Date Type Department Care Team (Latest Contact Info) Description 02/26/2018 Orders Only [facility] CLINCONV ProviderFlo MD [address] [place] [address] Social History Tobacco Use Types Packs/Day Years Used Date Smoking Tobacco: Never Comments Unknown Sex and Gender Information Value Date Recorded Sex Assigned at Not on file Legal Sex Female 1:48 AM INTERVENTIONAL NEURORADIOLOGIST Gender Identity Not on file Sexual Orientation Not on file documented as of this encounter Plan of Treatment Not on file documented as of this encounter Procedures Procedure Name Priority Date/Time Associated Diagnosis Comments SCAN - LABS 03/19/2018 12:00 AM INTERVENTIONAL NEURORADIOLOGIST documented in this encounter Results * SCAN - LABS (03/19/2018 12:00 AM INTERVENTIONAL NEURORADIOLOGIST) Narrative 03/19/2018 12:00 AM INTERVENTIONAL NEURORADIOLOGIST Ordered by an unspecified provider. Historical Provider Final Res ult documented in this encounter Visit Diagnoses Not on filedocumented in this encounter Care Teams Polisher Sand Relationship Specialty Start Date End Date Lexy Reed MD [address] [place] [address] PCP - General Family Medicine 04/04/18 documented as of this encounter
--- OUTSIDE RECORDS SUMMARY | 2025-04-19 16:55 | XMS_ITS | Clinical Summary ---
Author Organization [facility] Address [address] [place] [id number] Care Team Providers Care Practice Consultant Name Role Phone Lexy Reed MD Primary Care Provi thom Allergies Active Allergy Reactions Criticality Noted Date Comments Clemastine-Phenylprop Rash Medium 07/31/2018 Skin test at bag patcher occurred in 2011 Penicillins Rash Medium 11/01/2016 [...] 05/09/2021 Assessment & Plan (05/09/2021 1:19 PM WINDOW INSTALLER): Continue to work on a low carb diet Cervical stenosis (uterine cervix) 04/16/2019 Overview (04/16/2019): Added automatically from request for surgery [id number] Assessment & Plan (05/09/2021 1:12 PM WINDOW INSTALLER): She has follow up scheduled with DEVELOPMENT WRITER Assessment & Plan (05/26/2019 3:21 PM WINDOW INSTALLER): Unable to have D+C Will follow up with DEVELOPMENT WRITER tomorrow Update me after the visit Encounter [...] encouraged Assessment & Plan (05/09/2021 1:13 PM WINDOW INSTALLER): Encouraged healthy changes Encouraged to look into a POA, living will Health Maintenance: Last mammogram: ordered Last DEXA: following with a specialist Last colonoscopy: 05/08/12, repeat in 10 years Last Tdap: uncertain Last pneumonia/Prevnar: up to date Last Shingrix:encouraged Last Flu: up to date Last COVID: encouraged Assessment & Plan (03/20/2019 10:48 AM WINDOW INSTALLER): Work on healthy low carb diet Healthy [...] counseling. Assessment & Plan (05/09/2021 1:17 PM WINDOW INSTALLER): BMI Follow-up includes: nutrition counseling. Microhematuria 10/08/2018 Assessment & Plan (05/09/2021 1:15 PM WINDOW INSTALLER): Will recheck at next visit Assessment & Plan (03/20/2019 10:53 AM WINDOW INSTALLER): Lab ordered She does follow with urology Sacroiliitis 07/07/2018 Assessment & Plan (05/09/2021 1:18 PM WINDOW INSTALLER): Continue supportive care Lumbar radiculopathy 06/27/2018 Assessment & Plan (05/09/2021 1:15 PM WINDOW INSTALLER): Stable Continue supportive care Assessment & Plan (03/20/2019 10:53 AM WINDOW INSTALLER): Has done PT and seen pain management Continue supportive care Call if symptoms change or worsen Urge incontinence of urine 06/20/2018 Assessment & Plan (05/09/2021 1:18 PM WINDOW INSTALLER): Not on medication Continue to monitor Assessment & Plan (03/20/2019 10:55 AM WINDOW INSTALLER): improved Sciatica, right side 02/14/2018 Assessment & Plan (05/09/2021 1:18 PM WINDOW INSTALLER): Continue supportive care Pure hypercholesterolemia 08/01/2017 Overview (03/31/2019): CVD 4.2 % Assessment & Plan (05/09/2021 1:18 PM WINDOW INSTALLER): CVD score 7.1% We discussed the pros/cons She is going to work on healthy changes Assessment & Plan (06/09/2019 10:10 AM WINDOW INSTALLER): CVD 5.3% We discussed medication-she is not interested in medication If it continues to improve, she does not need medication Update me with any changes Call for questions or concerns Assessment & Plan (03/31/2019 2:01 PM WINDOW INSTALLER): CVD score 4.2% Continue working on healthy changes Recheck in 6-12 months Update me with any changes Call for questions or concerns Assessment & Plan (03/20/2019 10:54 AM WINDOW INSTALLER): Labs ordered Continue healthy changes Gastroesophageal reflux disease without esophagi tis 07/17/2017 Assessment & Plan (05/09/2021 1:14 PM WINDOW INSTALLER): Stable Continue nexium Reviewed the risks/benefits Assessment & Plan (03/20/2019 10:52 AM WINDOW INSTALLER): Reviewed risks of nexium including c diff and pneumonia Monitor symptoms, does want to continue it Call for questions or concerns Osteoporosis without current pathological fractu re 07/09/2017 Assessment & Plan (05/09/2021 1:16 PM WINDOW INSTALLER): Continue to follow with her specialist Update me with any changes Assessment & Plan (03/20/2019 10:54 AM WINDOW INSTALLER): Bone density scheduled Continue calcium and vitamin d Assessment & Plan (09/30/2018 4:08 PM CDT): calcium supplementation of 9167-7332 mg daily- over 1500 mg can be detrimental vitamin d of 5247-2033 units daily can increase bone mass limit [...] 11/04/2016 Assessment & Plan (05/09/2021 1:07 PM WINDOW INSTALLER): Last TSH was normal Assessment & Plan (03/20/2019 10:50 AM WINDOW INSTALLER): Lab ordered DDD (degenerative disc disease), cervical 2016 Assessment & Plan (05/09/2021 1:12 PM WINDOW INSTALLER): Improved Continue supportive care Atrophic vaginitis 03/25/2012 Assessment & Plan (05/09/2021 1:11 PM WINDOW INSTALLER): Off medication currently Assessment & Plan (03/20/2019 10:51 AM WINDOW INSTALLER): Not on treatment currently Resolved Problems Problem Noted Date Diagnosed Date Resolved Date PMB (postmenopausal bleeding) 04/16/2019 05/09/2021 Overview (04/16/2019): Added automatically from request for surgery [id number] Assessment & Plan (04/17/2019 5:50 PM WINDOW INSTALLER): Patient has also seeing Gyne on could [...] 05/09/2021 Assessment & Plan (03/20/2019 10:56 AM WINDOW INSTALLER): BMI Follow-up includes: nutrition counseling. Cough 10/28/2018 [...] arm Assessment & Plan (05/09/2021 1:15 PM WINDOW INSTALLER): resolved Dysphagia 11/01/2016 05/09/2021 Encounter for general [...] encouraged Assessment & Plan (05/09/2021 1:07 PM WINDOW INSTALLER): Encouraged healthy changes Encouraged to look into [...] on file Legal Sex Female 1:48 AM WINDOW INSTALLER Gender Identity Not on file Sexual Orientation Not on file Last Filed Vital Signs Vital Sign Reading Time Taken Comments Blood Pressure 124/80 09/04/2021 2:33 PM CDT Pulse 72 05/09/2021 12:55 PM WINDOW INSTALLER Temperature 36.3 C (97.3 F) 05/09/2021 12:55 PM WINDOW INSTALLER Respiratory Rate 12 05/09/2021 12:55 PM WINDOW INSTALLER Oxygen Saturation 98% 05/09/2021 12:55 PM WINDOW INSTALLER Inhaled Oxygen Concentration - - Weight 68.5 kg (151 lb) 09/04/2021 2:33 PM CDT Height 165.1 cm (5' 5) 05/09/2021 12:55 PM WINDOW INSTALLER Body Mass Index 25.13 05/09/2021 12:55 PM WINDOW INSTALLER Plan of Treatment Not on file Insurance MEDICARE [facility] ACCESS FOR LIFE MEDICARE FOR LIFE [facility] MEDICARE [facility] FOR LIFE Care Teams Practice Consultant Relationship Specialty Start Date End Date Lexy Reed MD [address] [place] [address] PCP - General Family Medicine 04/04/18
--- OUTSIDE RECORDS SUMMARY | 2025-04-19 16:55 | XMS_ITS | Encounter Summary ---
Author Organization [facility] Facility Care Team Providers Care Armored Car Messenger Name Role Phone Lexy Reed MD Primary Care Provi thom Encounter Details Date Type Department Care Team (Latest Contact Info) Description 05/08/2012 Orders Only [facility] CLINCONV ProviderFlo MD [address] [place] [address] Social History Tobacco Use Types Packs/Day Years Used Date Smoking Tobacco: Never Assessed Comments Unknown Sex and Gender Information Value Date Recorded Sex Assigned at Not on file Legal Sex Female 1:48 AM DREDGE ENGINEER Gender Identity Not on file Sexual Orientation Not on file documented as of this encounter Plan of Treatment Not on file documented as of this encounter Procedures Procedure Name Priority Date/Time Associated Diagnosis Comments COLONOSCOPY - SCAN 05/08/2012 12 :00 AM DREDGE ENGINEER documented in this encounter Results * COLONOSCOPY - SCAN (05/08/2012 12:00 AM DREDGE ENGINEER) Narrative 05/08/2012 12:00 AM DREDGE ENGINEER Ordered by an unspecified provider. Historical Provider Final Res ult documented in this encounter Visit Diagnoses Not on filedocumented in this encounter Care Teams Armored Car Messenger Relationship Specialty Start Date End Date Lexy Reed MD [address] [place] [address] PCP - General Family Medicine 04/04/18 documented as of this encounter
--- OUTSIDE RECORDS SUMMARY | 2025-04-19 16:55 | XMS_ITS | Encounter Summary ---
Author Organization [facility] Facility Care Team Providers Care Senior Director Name Role Phone Lexy Reed MD Primary Care Provi thom Encounter Details Date Type Department Care Team (Latest Contact Info) Description 03/15/2016 Orders Only [facility]G CLINCONV ProviderFlo MD [address] [place] [address] Social History Tobacco Use Types Packs/Day Years Used Date Smoking Tobacco: Never Comments Unknown Sex and Gender Information Value Date Recorded Sex Assigned at Not on file Legal Sex Female 1:48 AM YOUTH SERVICES LIBRARIAN Gender Identity Not on file Sexual Orientation Not on file documented as of this encounter Plan of Treatment Not on file documented as of this encounter Procedures Procedure Name Priority Date/Time Associated Diagnosis Comments SCAN - LABS 03/15/2016 12:00 AM YOUTH SERVICES LIBRARIAN documented in this encounter Results * SCAN - LABS (03/15/2016 12:00 AM YOUTH SERVICES LIBRARIAN) Narrative 03/15/2016 12:00 AM YOUTH SERVICES LIBRARIAN Ordered by an unspecified provider. Historical Provider Final Res ult documented in this encounter Visit Diagnoses Not on filedocumented in this encounter Care Teams Senior Director Relationship Specialty Start Date End Date Lexy Reed MD [address] [place] [address] PCP - General Family Medicine 04/04/18 documented as of this encounter
--- OUTSIDE RECORDS SUMMARY | 2025-04-19 16:55 | XMS_ITS | Clinical Summary ---
Author Organization [facility] Address [address] [place] [address] Care Team Providers Care Urban Planning Teacher Name Role Phone Cesia Randle NP Primary Care Provider [phone] Allergies Active Allergy Reactions Criticality Noted Date [...] Overview: Added automatically from request for surgery [id number] Added automatically from request for surgery [id number] Last Assessment & Plan: Unable to have D+C Will follow up with MACHINE BOSS tomorrow Update me after the visit Added automatically from request for surgery [id number] Last Assessment & Plan: She has follow up scheduled with MACHINE BOSS PMB (postmenopausal bleeding) 04/16/2019 Overview (05/05/2019): Overview: Added automatically from request for surgery [id number] Last Assessment & Plan: Patient has also [...] Start Date Job End Date Retired from [employer] Not on file Not on file Not on file Last Filed Vital Signs Vital Sign Reading Time Taken Comments Blood Pressure 135/86 04/11/2022 3:43 PM PRODUCTION RECOVERY OPERATOR Pulse 77 04/11/2022 3:43 PM PRODUCTION RECOVERY OPERATOR Temperature 36.1 C (97 F) 04/11/2022 3:43 PM PRODUCTION RECOVERY OPERATOR Respiratory Rate 18 04/11/2022 3:43 PM PRODUCTION RECOVERY OPERATOR Oxygen Saturation 97% 04/11/2022 3:43 PM PRODUCTION RECOVERY OPERATOR Inhaled Oxygen Concentration - - Weight 71.7 kg (158 lb 1.6 oz) 04/11/2022 3:43 P M PRODUCTION RECOVERY OPERATOR Height 165.1 cm (5' 5) 04/11/2022 3:43 PM PRODUCTION RECOVERY OPERATOR Body Mass Index 26.31 04/11/2022 3:43 PM PRODUCTION RECOVERY OPERATOR Plan of Treatment Health Maintenance Due Date Last Done Comments DTaP, Tdap and Td Vaccines (1 - Tdap) 1971 Zoster Vaccines (1 of 2) 2002 Colorectal Cancer Screening Colonoscopy (10 Years) 10/14/2010 10/14/2000 Mammogram Screening 06/28/2023 06/27/2021, 05/14/2019, 07/04/2017, Additional history exists PHQ-2 (Physician [place]key) 04/29/2024 COVID-19 Vaccine ( season) 2024 Influenza [...] C screening test MG SCREENING W DELL ILAM DIGI Routine 06/27/2021 1:08 PM PRODUCTION RECOVERY OPERATOR Screening mammogram for breast cancer BONE DENSITY/DEXA Routine 03/28/2021 3:0 2 PM PRODUCTION RECOVERY OPERATOR Age-related osteoporosis without current pathological fracture COLONOSCOPY GENERIC (SCAN ORDER) 10/14/2000 from Last 3 Months or Most Recently Relevant to Health Maintenance Results * HEPATITIS C ANTIBODY (09/15/2021 7:07 PM CDT) HEPATITIS C AB NON-REACTI VE NON-REACT TANNER 09/15/2021 9:[address] [facility] Comment: ANTIBODIES TO HCV NOT DETECTED. DOES NOT EXCLUDE THE POSSIBILITY OF EXPOSURE TO HCV. 09/15/2021 7:07 PM CDT us Cesia Randle MAINTENANCE AND ENGINEERING MANAGER LABORATORY Final Res ult [facility] [address] [place] [address], [place] [phone] [id number] * MG SCREENING W DELL LIAM DIGI (06/27/2021 1:08 PM PRODUCTION RECOVERY OPERATOR) Anatomical Region Laterality Modality Breast Bilateral Mammography 06/27/2021 2:24 PM PRODUCTION RECOVERY OPERATOR Impressions 06/27/2021 2:25 PM PRODUCTION RECOVERY OPERATOR =====IMPRESSION:===== No mammographic findings suggestive of malignancy ASSESSMENT: ACR BI-RADS 2 - BENIGN FINDING(S) Recommendation: 1: Routine Screening Bilateral COMMENTS: Ordered By: CESIA RANDLE Interpreted By: Nick Srivastava MD, 06/27/2021 2:24 PM Narrative 06/27/2021 2:25 PM PRODUCTION RECOVERY OPERATOR EXAMINATION: Digital bilateral screening mammogram with 3-D [...] from the prior exam. us Cesia Randle MAINTENANCE AND ENGINEERING MANAGER MAMMO Final Res ult * BONE DENSITY/DEXA (03/28/2021 3:02 PM PRODUCTION RECOVERY OPERATOR) Anatomical Region Laterality Modality Bone Mammography 03/28/2021 3:07 PM PRODUCTION RECOVERY OPERATOR Impressions 03/28/2021 3:09 PM PRODUCTION RECOVERY OPERATOR Impression: BMD measured at AP lumbar spine and both femoral necks at WHO category level of osteopenia. BMD measured at both total hips at level of normal. BMD measured at AP lumbar spine and both total hips slightly increased since study 04/06/2020. Ordered By: BAKARI ROSENBERG Interpreted By: Ventura Moraes MD, 03/28/2021 3:07 PM Narrative 03/28/2021 3:09 PM PRODUCTION RECOVERY OPERATOR Examination: DEXA Bone densitometry EXAM DATE: 03/28/2021 [...] Recently Relevant to Health Maintenance Insurance MEDICARE [facility] HUMAN [employer] Care Teams Urban Planning Teacher Relationship Specialty Start Date End Date Cesia Randle NP [address] [place] [address] PCP - General NURSE PRACTITIONER 05/16/21
--- OUTSIDE RECORDS SUMMARY | 2025-04-19 16:55 | XMS_ITS | Encounter Summary ---
Author Organization [facility] Facility Care Team Providers Care Fish Hatchery Superintendent Name Role Phone Lexy Reed MD Primary Care Provi thom Encounter Details Date Type Department Care Team (Latest Contact Info) Description 06/20/2018 Orders Only [facility]G CLINCONV ProviderFlo MD [address] [place] [address] Social History Tobacco Use Types Packs/Day Years Used Date Smoking Tobacco: Never Comments Unknown Sex and Gender Information Value Date Recorded Sex Assigned at Not on file Legal Sex Female 1:48 AM AIRPLANE PILOT CHIEF Gender Identity Not on file Sexual Orientation Not on file documented as of this encounter Plan of Treatment Not on file documented as of this encounter Procedures Procedure Name Priority Date/Time Associated Diagnosis Comments CARDIOLOGY REPORT 06/25/2018 12: 00 AM AIRPLANE PILOT CHIEF documented in this encounter Results * CARDIOLOGY REPORT (06/25/2018 12:00 AM AIRPLANE PILOT CHIEF) Anatomical Region Laterality Modality Other Narrative 06/25/2018 12:00 AM AIRPLANE PILOT CHIEF Ordered by an unspecified provider. Historical Provider CV CARDIAC SERVICES CARMEN HAGER Final Result documented in this encounter Visit Diagnoses Not on filedocumented in this encounter Care Teams Fish Hatchery Superintendent Relationship Specialty Start Date End Date Lexy Reed MD [address] [place] [address] PCP - General Family Medicine 04/04/18 documented as of this encounter
--- OUTSIDE RECORDS SUMMARY | 2025-04-19 16:55 | XMS_ITS | Encounter Summary ---
Author Organization [facility] Address [address] [place] [address] Care Team Providers Care Mortgage Collector Name Role Phone Lexy Reed MD Primary Care Provider Cesia Randle NP Primary Care Provider [phone] Encounter Details Date Type Department Care Team (Late st Contact Info) Description 04/27/2021 Therapy Plan [facility] Diabetes and Endocrinology - [address] [address] [place] [address] [place] [address] Social History Tobacco Use Types Packs/Day Years [...] Start Date Job End Date Retired from [employer] Not on file Not on file Not on file COVID-19 Exposure Response Date Recorded In the last month, have you been in contact with someone who was confirmed or suspected to have Coronavirus / COVID-19? No / Unsure 04/27/2021 10:43 AM DIET THERAPIST documented as of this encounter Plan of Treatment Not on file documented as of this encounter Visit Diagnoses Not on filedocumented in this encounter Additional Health Concerns Assessment Noted Time PHQ-9 Depression Total Score: 0 04/27/20 10:53 AM DIET THERAPIST documented as of this encounter Care Teams Mortgage Collector Relationship Specialty Start Date End Date Lexy Reed MD [address] [place] [address] PCP - General FAMILY PRACTICE 02/05/18 05/15/21 Cesia Randle NP [address] [place] [address] PCP - General NURSE PRACTITIONER 05/16/21 documented as of this encounter
--- OUTSIDE RECORDS SUMMARY | 2025-04-19 16:55 | XMS_ITS | Encounter Summary ---
Author Organization [facility] Address [address] [place] [address] Care Team Providers Care Calendering Supervisor Name Role Phone Cesia Randle NP Primary Care Provider [phone] Encounter Details Date Type Department Care Team (Late st Contact Info) Description 12/28/2021 Rx Systems PF Message Enc [facility] Family Medicine - [place] [address] [facility] [address] [place] [address] Cesia Randle, ARABELLA [address] [place] [address] Bp reading you took today, is not [...] Start Date Job End Date Retired from [employer] Not on file Not on file [...] Depression Total Score: 0 06/28/19 3:24 PM WRITING MANAGER documented as of this encounter Care Teams Calendering Supervisor Relationship Specialty Start Date End Date Cesia Randle NP [address] [place] [address] PCP - General NURSE PRACTITIONER 05/16/21 documented as of this encounter
[2025-04-19 18:49] LABS: Add Urine Microscopic? NO; Appearance Urine Clear (Clear); Glucose Urine UA Negative (Negative); Leukocyte Esterase Ur Negative LEU/UL (Negative); Nitrate Urine Negative (Negative); Specific Grav Ur 1.007 (1.001-1.035)
== END 2025-04-19 15:19 | disposition home or self-care (01) ==
LOC: ANHGOSHLAB 15:19
PROVIDERS: PCP Internal Medicine
DX: R31.9 Hematuria, unspecified (principal)
CPT/HCPCS: 81003